=== PATIENT | male | born 1955 | race Caucasian/White ===

== ENCOUNTER 2021-01-02 11:12 | Inpatient (IN) ==
[2021-01-02] MEDS: Insulin LISPRO 300 UNITS/3 ML VIAL SUBQ SCH ×2 (17:14→22:23)
[2021-01-02] MEDS: *HR* Heparin 5,000 UNIT/ML VIAL SQ SCH ×2 (17:16→22:23)
[2021-01-02] MEDS: ceFAZolin 1,000 MG in 0.9 % Sodium Chloride Mini Bag 100 ML IVPB SCH (17:18)
[2021-01-02] MEDS: Insulin DETEMIR 100 UNIT/ML X5UNITS SUBQ SCH (22:25)
[2021-01-03] MEDS: ceFAZolin 1,000 MG in 0.9 % Sodium Chloride Mini Bag 100 ML IVPB SCH ×2 (02:31→09:53)
[2021-01-03] MEDS: *HR* Heparin 5,000 UNIT/ML VIAL SQ SCH ×3 (05:11→21:10)
[2021-01-03] MEDS: Insulin LISPRO 300 UNITS/3 ML VIAL SUBQ SCH ×5 (07:37→21:11)
[2021-01-03 07:40] LABS: Basophils # 0.1 K/mcL (0.0-0.2); Eosinophils # 0.3 K/mcL (0.0-0.6); Eosinophils % 2.5 %; Hemoglobin 10.6 g/dL (12.9-16.9); Immature Granulocytes % 0.6 % (0-4); Lymphocytes # 1.5 K/mcL (0.6-4.6); Lymphocytes % 14.5 %; Mean Corpuscular HGB Conc 32.1 g/dL (31.6-35.5); Mean Corpuscular Hemoglobin 28.3 pg (28.0-33.3); Mean Corpuscular Volume 88.2 fL (83.0-100.0); Mean Platelet Volume 10.2 fL (9.4-12.4); Monocytes # 0.9 K/mcL (0.0-1.3); Monocytes % 9.1 %; Neutrophils # 7.5 K/mcL (1.6-8.9); Platelet Count 300 K/mcL (140-400); Red Blood Count 3.74 M/mcL (4.19-5.50); Red Cell Distribution Width 14.8 % (11.5-14.5); Segmented Neutrophils % 72.3 %; White Blood Count 10.3 K/mcL (4.3-11.1)
[2021-01-03 07:48] LABS: Calcium 8.7 mg/dL (8.6-10.3); Potassium 4.4 mEq/L (3.5-5.1)
[2021-01-03] MEDS: Metoprolol XL (24 HR) Succ 25 MG TAB.ER.24H PO SCH (07:56)
[2021-01-03] MEDS ORDERED: Furosemide 40 MG TABLET PO SCH (09:00)
[2021-01-03] MEDS: ceFAZolin 2,000 MG in 0.9 % Sodium Chloride 100 ML IVPB SCH (17:01)
[2021-01-03] MEDS: Insulin DETEMIR 100 UNIT/ML X5UNITS SUBQ SCH (21:11)
[2021-01-04] MEDS: ceFAZolin 2,000 MG in 0.9 % Sodium Chloride 100 ML IVPB SCH ×4 (00:15→23:55)
[2021-01-04] MEDS: *HR* Heparin 5,000 UNIT/ML VIAL SQ SCH ×3 (06:00→20:39)
[2021-01-04] MEDS: Insulin LISPRO 300 UNITS/3 ML VIAL SUBQ SCH ×7 (08:00→21:05)
[2021-01-04] MEDS: Metoprolol XL (24 HR) Succ 25 MG TAB.ER.24H PO SCH (08:03)
[2021-01-04] MEDS: Insulin DETEMIR 100 UNIT/ML X5UNITS SUBQ SCH (20:39)
[2021-01-05] MEDS: *HR* Heparin 5,000 UNIT/ML VIAL SQ SCH ×3 (06:47→21:27)
[2021-01-05 07:03] LABS: Basophils # 0.1 K/mcL (0.0-0.2); Basophils % 1.1 %; Eosinophils # 0.3 K/mcL (0.0-0.6); Eosinophils % 2.7 %; Hematocrit 34.8 % (37.5-50.1); Hemoglobin 10.9 g/dL (12.9-16.9); Immature Granulocytes % 0.3 % (0-4); Lymphocytes # 1.4 K/mcL (0.6-4.6); Lymphocytes % 14.5 %; Mean Corpuscular HGB Conc 31.3 g/dL (31.6-35.5); Mean Corpuscular Volume 89.5 fL (83.0-100.0); Mean Platelet Volume 10.7 fL (9.4-12.4); Monocytes % 10.9 %; Neutrophils # 6.6 K/mcL (1.6-8.9); Platelet Count 312 K/mcL (140-400); Red Blood Count 3.89 M/mcL (4.19-5.50); Segmented Neutrophils % 70.5 %; White Blood Count 9.3 K/mcL (4.3-11.1)
[2021-01-05 07:19] LABS: Calcium 8.6 mg/dL (8.6-10.3); Potassium 3.8 mEq/L (3.5-5.1)
[2021-01-05] MEDS: Insulin LISPRO 300 UNITS/3 ML VIAL SUBQ SCH ×6 (07:41→16:45)
[2021-01-05] MEDS: Metoprolol XL (24 HR) Succ 25 MG TAB.ER.24H PO SCH (07:41)
[2021-01-05] MEDS: ceFAZolin 2,000 MG in 0.9 % Sodium Chloride 100 ML IVPB SCH ×2 (09:00→16:43)
[2021-01-05] MEDS: Insulin DETEMIR 100 UNIT/ML X5UNITS SUBQ SCH (21:27)
[2021-01-06] MEDS: ceFAZolin 2,000 MG in 0.9 % Sodium Chloride 100 ML IVPB SCH ×4 (00:54→22:21)
[2021-01-06] MEDS: *HR* Heparin 5,000 UNIT/ML VIAL SQ SCH ×3 (06:01→22:20)
[2021-01-06] MEDS: Insulin LISPRO 300 UNITS/3 ML VIAL SUBQ SCH ×6 (09:23→17:32)
[2021-01-06] MEDS: Metoprolol XL (24 HR) Succ 25 MG TAB.ER.24H PO SCH (09:24)
[2021-01-06] MEDS: Lactobacillus 1 EACH CAP.SPRINK PO SCH (22:21)
[2021-01-06] MEDS: Insulin DETEMIR 100 UNIT/ML X5UNITS SUBQ SCH (22:21)
[2021-01-07] MEDS: *HR* Heparin 5,000 UNIT/ML VIAL SQ SCH ×3 (06:09→20:56)
[2021-01-07] MEDS: Metoprolol XL (24 HR) Succ 25 MG TAB.ER.24H PO SCH (08:59)
[2021-01-07] MEDS: Insulin LISPRO 300 UNITS/3 ML VIAL SUBQ SCH ×6 (08:59→16:07)
[2021-01-07] MEDS: Lactobacillus 1 EACH CAP.SPRINK PO SCH ×2 (08:59→20:56)
[2021-01-07] MEDS: ceFAZolin 2,000 MG in 0.9 % Sodium Chloride 100 ML IVPB SCH ×2 (09:04→16:03)
[2021-01-07] MEDS: Insulin DETEMIR 100 UNIT/ML X5UNITS SUBQ SCH (20:56)
[2021-01-08] MEDS: ceFAZolin 2,000 MG in 0.9 % Sodium Chloride 100 ML IVPB SCH ×3 (00:42→16:08)
[2021-01-08] MEDS: *HR* Heparin 5,000 UNIT/ML VIAL SQ SCH ×3 (05:48→22:38)
[2021-01-08] MEDS: Insulin LISPRO 300 UNITS/3 ML VIAL SUBQ SCH ×6 (08:30→16:14)
[2021-01-08] MEDS: Lactobacillus 1 EACH CAP.SPRINK PO SCH ×2 (08:31→22:38)
[2021-01-08] MEDS: Metoprolol XL (24 HR) Succ 25 MG TAB.ER.24H PO SCH (08:31)
[2021-01-08] MEDS: Insulin DETEMIR 100 UNIT/ML X5UNITS SUBQ SCH (22:38)
[2021-01-09] MEDS: ceFAZolin 2,000 MG in 0.9 % Sodium Chloride 100 ML IVPB SCH ×4 (00:14→16:21)
[2021-01-09] MEDS: *HR* Heparin 5,000 UNIT/ML VIAL SQ SCH ×3 (07:06→21:50)
[2021-01-09] MEDS: Insulin LISPRO 300 UNITS/3 ML VIAL SUBQ SCH ×6 (08:10→16:20)
[2021-01-09] MEDS: Metoprolol XL (24 HR) Succ 25 MG TAB.ER.24H PO SCH (08:33)
[2021-01-09] MEDS: Lactobacillus 1 EACH CAP.SPRINK PO SCH ×2 (08:33→21:49)
[2021-01-09] MEDS: Insulin DETEMIR 100 UNIT/ML X5UNITS SUBQ SCH (21:50)
[2021-01-10] MEDS: ceFAZolin 2,000 MG in 0.9 % Sodium Chloride 100 ML IVPB SCH ×4 (00:29→23:57)
[2021-01-10] MEDS: *HR* Heparin 5,000 UNIT/ML VIAL SQ SCH ×3 (05:55→20:49)
[2021-01-10] MEDS: Insulin LISPRO 300 UNITS/3 ML VIAL SUBQ SCH ×6 (07:38→17:05)
[2021-01-10] MEDS: Metoprolol XL (24 HR) Succ 25 MG TAB.ER.24H PO SCH (08:02)
[2021-01-10] MEDS: Lactobacillus 1 EACH CAP.SPRINK PO SCH ×2 (08:02→20:49)
[2021-01-10] MEDS: Insulin DETEMIR 100 UNIT/ML X5UNITS SUBQ SCH (20:49)
[2021-01-11] MEDS: *HR* Heparin 5,000 UNIT/ML VIAL SQ SCH ×3 (05:43→21:24)
[2021-01-11] MEDS: Insulin LISPRO 300 UNITS/3 ML VIAL SUBQ SCH ×6 (07:37→16:35)
[2021-01-11] MEDS: Metoprolol XL (24 HR) Succ 25 MG TAB.ER.24H PO SCH (09:14)
[2021-01-11] MEDS: Lactobacillus 1 EACH CAP.SPRINK PO SCH ×2 (09:14→21:23)
[2021-01-11] MEDS: ceFAZolin 2,000 MG in 0.9 % Sodium Chloride 100 ML IVPB SCH ×2 (09:29→16:29)
[2021-01-11] MEDS: Insulin DETEMIR 100 UNIT/ML X5UNITS SUBQ SCH (21:24)
[2021-01-12] MEDS: ceFAZolin 2,000 MG in 0.9 % Sodium Chloride 100 ML IVPB SCH ×3 (00:14→15:54)
[2021-01-12] MEDS: *HR* Heparin 5,000 UNIT/ML VIAL SQ SCH ×3 (06:16→20:53)
[2021-01-12] MEDS: Insulin LISPRO 300 UNITS/3 ML VIAL SUBQ SCH ×6 (08:27→17:33)
[2021-01-12] MEDS: Metoprolol XL (24 HR) Succ 25 MG TAB.ER.24H PO SCH (08:28)
[2021-01-12] MEDS: Lactobacillus 1 EACH CAP.SPRINK PO SCH ×2 (08:28→20:53)
[2021-01-12] MEDS: Insulin DETEMIR 100 UNIT/ML X5UNITS SUBQ SCH (20:55)
[2021-01-13] MEDS: ceFAZolin 2,000 MG in 0.9 % Sodium Chloride 100 ML IVPB SCH ×4 (01:38→23:20)
[2021-01-13] MEDS: *HR* Heparin 5,000 UNIT/ML VIAL SQ SCH ×3 (06:05→20:21)
[2021-01-13 07:09] LABS: Basophils # 0.1 K/mcL (0.0-0.2); Basophils % 1.2 %; Eosinophils # 0.4 K/mcL (0.0-0.6); Eosinophils % 6.1 %; Hematocrit 36.4 % (37.5-50.1); Hemoglobin 11.5 g/dL (12.9-16.9); Immature Granulocytes % 0.2 % (0-4); Lymphocytes # 1.2 K/mcL (0.6-4.6); Lymphocytes % 20.1 %; Mean Corpuscular HGB Conc 31.6 g/dL (31.6-35.5); Mean Corpuscular Hemoglobin 28.2 pg (28.0-33.3); Mean Corpuscular Volume 89.2 fL (83.0-100.0); Monocytes # 0.7 K/mcL (0.0-1.3); Monocytes % 12.8 %; Neutrophils # 3.4 K/mcL (1.6-8.9); Platelet Count 294 K/mcL (140-400); Red Blood Count 4.08 M/mcL (4.19-5.50); Red Cell Distribution Width 15.3 % (11.5-14.5); Segmented Neutrophils % 59.6 %; White Blood Count 5.8 K/mcL (4.3-11.1)
[2021-01-13 07:36] LABS: Calcium 9.1 mg/dL (8.6-10.3); Potassium 4.9 mEq/L (3.5-5.1)
[2021-01-13] MEDS: Metoprolol XL (24 HR) Succ 25 MG TAB.ER.24H PO SCH (08:25)
[2021-01-13] MEDS: Insulin LISPRO 300 UNITS/3 ML VIAL SUBQ SCH ×7 (08:25→20:22)
[2021-01-13] MEDS: Lactobacillus 1 EACH CAP.SPRINK PO SCH ×2 (08:25→20:22)
[2021-01-13] MEDS: Insulin DETEMIR 100 UNIT/ML X5UNITS SUBQ SCH (20:21)
[2021-01-14] MEDS: *HR* Heparin 5,000 UNIT/ML VIAL SQ SCH ×3 (06:21→20:13)
[2021-01-14] MEDS: Metoprolol XL (24 HR) Succ 25 MG TAB.ER.24H PO SCH (08:39)
[2021-01-14] MEDS: Lactobacillus 1 EACH CAP.SPRINK PO SCH ×2 (08:39→20:13)
[2021-01-14] MEDS: ceFAZolin 2,000 MG in 0.9 % Sodium Chloride 100 ML IVPB SCH ×3 (08:50→23:20)
[2021-01-14] MEDS: Insulin LISPRO 300 UNITS/3 ML VIAL SUBQ SCH ×7 (08:50→20:14)
[2021-01-14] MEDS: Insulin DETEMIR 100 UNIT/ML X5UNITS SUBQ SCH (20:13)
[2021-01-15] MEDS: *HR* Heparin 5,000 UNIT/ML VIAL SQ SCH ×3 (05:39→20:16)
[2021-01-15] MEDS: Lactobacillus 1 EACH CAP.SPRINK PO SCH ×2 (08:28→20:14)
[2021-01-15] MEDS: Insulin LISPRO 300 UNITS/3 ML VIAL SUBQ SCH ×7 (08:29→20:15)
[2021-01-15] MEDS: ceFAZolin 2,000 MG in 0.9 % Sodium Chloride 100 ML IVPB SCH ×3 (08:30→23:24)
[2021-01-15] MEDS: Metoprolol XL (24 HR) Succ 25 MG TAB.ER.24H PO SCH (08:31)
[2021-01-15] MEDS: Insulin DETEMIR 100 UNIT/ML X5UNITS SUBQ SCH (20:15)
[2021-01-16] MEDS: *HR* Heparin 5,000 UNIT/ML VIAL SQ SCH ×3 (05:29→20:46)
[2021-01-16] MEDS: Insulin LISPRO 300 UNITS/3 ML VIAL SUBQ SCH ×7 (08:53→20:48)
[2021-01-16] MEDS: Metoprolol XL (24 HR) Succ 25 MG TAB.ER.24H PO SCH (08:58)
[2021-01-16] MEDS: Lactobacillus 1 EACH CAP.SPRINK PO SCH ×2 (08:58→20:47)
[2021-01-16] MEDS: ceFAZolin 2,000 MG in 0.9 % Sodium Chloride 100 ML IVPB SCH ×2 (09:10→18:18)
[2021-01-16] MEDS: Insulin DETEMIR 100 UNIT/ML X5UNITS SUBQ SCH (20:53)
[2021-01-17] MEDS: ceFAZolin 2,000 MG in 0.9 % Sodium Chloride 100 ML IVPB SCH ×3 (01:33→16:57)
[2021-01-17] MEDS: *HR* Heparin 5,000 UNIT/ML VIAL SQ SCH ×3 (06:35→22:27)
[2021-01-17] MEDS: Insulin LISPRO 300 UNITS/3 ML VIAL SUBQ SCH ×7 (08:52→21:00)
[2021-01-17] MEDS: Lactobacillus 1 EACH CAP.SPRINK PO SCH ×2 (08:53→21:00)
[2021-01-17] MEDS: Metoprolol XL (24 HR) Succ 25 MG TAB.ER.24H PO SCH (08:53)
[2021-01-17] MEDS: Insulin DETEMIR 100 UNIT/ML X5UNITS SUBQ SCH (21:00)
[2021-01-18] MEDS ORDERED: ceFAZolin 2,000 MG in 0.9 % Sodium Chloride 100 ML IVPB SCH ×2 (02:00→07:00)
[2021-01-18] MEDS: *HR* Heparin 5,000 UNIT/ML VIAL SQ SCH ×3 (06:58→21:52)
[2021-01-18] MEDS: Metoprolol XL (24 HR) Succ 25 MG TAB.ER.24H PO SCH (08:32)
[2021-01-18] MEDS: Lactobacillus 1 EACH CAP.SPRINK PO SCH ×2 (08:32→21:51)
[2021-01-18] MEDS: ceFAZolin 2,000 MG in 0.9 % Sodium Chloride 100 ML IVPB SCH ×3 (08:32→23:51)
[2021-01-18] MEDS: Insulin LISPRO 300 UNITS/3 ML VIAL SUBQ SCH ×7 (08:33→21:52)
[2021-01-18] MEDS: Insulin DETEMIR 100 UNIT/ML X5UNITS SUBQ SCH (21:51)
[2021-01-19] MEDS: *HR* Heparin 5,000 UNIT/ML VIAL SQ SCH ×2 (06:09→14:45)
[2021-01-19] MEDS: ceFAZolin 2,000 MG in 0.9 % Sodium Chloride 100 ML IVPB SCH ×3 (08:14→23:32)
[2021-01-19] MEDS: Insulin LISPRO 300 UNITS/3 ML VIAL SUBQ SCH ×7 (08:15→21:09)
[2021-01-19] MEDS: Lactobacillus 1 EACH CAP.SPRINK PO SCH ×2 (08:15→20:14)
[2021-01-19] MEDS: Metoprolol XL (24 HR) Succ 25 MG TAB.ER.24H PO SCH (08:45)
[2021-01-19 10:03] LABS: Basophils # 0.1 K/mcL (0.0-0.2); Basophils % 1.6 %; Eosinophils # 0.4 K/mcL (0.0-0.6); Eosinophils % 5.3 %; Hematocrit 41.5 % (37.5-50.1); Hemoglobin 13.1 g/dL (12.9-16.9); Immature Granulocytes % 0.3 % (0-4); Lymphocytes # 1.1 K/mcL (0.6-4.6); Lymphocytes % 16.1 %; Mean Corpuscular HGB Conc 31.6 g/dL (31.6-35.5); Mean Corpuscular Hemoglobin 28.3 pg (28.0-33.3); Mean Corpuscular Volume 89.6 fL (83.0-100.0); Mean Platelet Volume 11.1 fL (9.4-12.4); Monocytes # 0.5 K/mcL (0.0-1.3); Monocytes % 7.7 %; Neutrophils # 4.7 K/mcL (1.6-8.9); Platelet Count 334 K/mcL (140-400); Red Blood Count 4.63 M/mcL (4.19-5.50); Red Cell Distribution Width 15.7 % (11.5-14.5); White Blood Count 6.8 K/mcL (4.3-11.1)
[2021-01-19 10:18] LABS: Albumin 3.6 g/dL (3.5-5.7); Albumin/Globulin Ratio 1.1 (1.1-2.2); Bilirubin,Total 0.3 mg/dL (0.3-1.0); Calcium 9.6 mg/dL (8.6-10.3); Globulin 3.2 g/dL (2.4-3.5); Potassium 4.5 mEq/L (3.5-5.1); Total Protein 6.8 g/dL (6.4-8.9)
[2021-01-19] MEDS ORDERED: Perflutren Lipid Microsphere 1.3 ML in 0.9 % Sodium Chloride 8.7 ML IVP PRN (13:53)
[2021-01-19] MEDS ORDERED: *HR* Heparin 5,000 UNIT/ML VIAL IVP ONE (17:40)
[2021-01-19] MEDS ORDERED: *HR* Heparin 5,000 UNIT/ML VIAL IVP PRN ×2 (17:40)
[2021-01-19] MEDS ORDERED: Warfarin perPT PO PRN (18:00)
[2021-01-19] MEDS ORDERED: *HR* Warfarin 5 MG TABLET PO ONE (18:00)
[2021-01-19 19:02] LABS: Hematocrit 38.1 % (37.5-50.1); Hemoglobin 12.2 g/dL (12.9-16.9); Mean Corpuscular Hemoglobin 28.6 pg (28.0-33.3); Mean Corpuscular Volume 89.4 fL (83.0-100.0); Mean Platelet Volume 11.3 fL (9.4-12.4); Platelet Count 316 K/mcL (140-400); Red Blood Count 4.26 M/mcL (4.19-5.50); Red Cell Distribution Width 15.5 % (11.5-14.5); White Blood Count 6.7 K/mcL (4.3-11.1)
[2021-01-19 19:12] LABS: INR 1.1; Prothrombin Time 12.7 Seconds (9.4-12.1)
[2021-01-19 19:18] LABS: Heparin anti-factor XA UFH < 0.04 IU/mL (0.30-0.70)
[2021-01-19] MEDS: Heparin 25,000UNIT/250ML 1/2NS 25,000 UNIT/250 ML IV.SOLN IVC SCH (19:42)
[2021-01-19] MEDS: Insulin DETEMIR 100 UNIT/ML X5UNITS SUBQ SCH (21:07)
[2021-01-20 03:20] LABS: Prothrombin Time 14.8 Seconds (9.4-12.1)
[2021-01-20 03:21] LABS: INR 1.3
[2021-01-20] MEDS: Insulin LISPRO 300 UNITS/3 ML VIAL SUBQ SCH ×7 (08:37→20:08)
[2021-01-20] MEDS: Lactobacillus 1 EACH CAP.SPRINK PO SCH ×2 (08:38→20:06)
[2021-01-20] MEDS: Metoprolol XL (24 HR) Succ 25 MG TAB.ER.24H PO SCH (08:38)
[2021-01-20] MEDS: ceFAZolin 2,000 MG in 0.9 % Sodium Chloride 100 ML IVPB SCH ×3 (08:52→23:01)
[2021-01-20] MEDS: Aspirin 81 MG TAB.CHEW PO SCH (11:46)
[2021-01-20] MEDS ORDERED: *HR* Warfarin 5 MG TABLET PO ONE (18:00)
[2021-01-20] MEDS: Heparin 25,000UNIT/250ML 1/2NS 25,000 UNIT/250 ML IV.SOLN IVC SCH (18:16)
[2021-01-20] MEDS: Insulin DETEMIR 100 UNIT/ML X5UNITS SUBQ SCH (20:06)
[2021-01-21 08:39] LABS: Basophils # 0.1 K/mcL (0.0-0.2); Basophils % 1.5 %; Eosinophils # 0.3 K/mcL (0.0-0.6); Eosinophils % 5.5 %; Hematocrit 37.7 % (37.5-50.1); Hemoglobin 12.1 g/dL (12.9-16.9); Immature Granulocytes % 0.4 % (0-4); Lymphocytes % 18.3 %; Mean Corpuscular HGB Conc 32.1 g/dL (31.6-35.5); Mean Corpuscular Hemoglobin 28.4 pg (28.0-33.3); Mean Corpuscular Volume 88.5 fL (83.0-100.0); Mean Platelet Volume 11.6 fL (9.4-12.4); Monocytes # 0.7 K/mcL (0.0-1.3); Monocytes % 12.4 %; Neutrophils # 3.4 K/mcL (1.6-8.9); Platelet Count 280 K/mcL (140-400); Red Blood Count 4.26 M/mcL (4.19-5.50); Red Cell Distribution Width 15.3 % (11.5-14.5); Segmented Neutrophils % 61.9 %; White Blood Count 5.4 K/mcL (4.3-11.1)
[2021-01-21 08:43] LABS: INR 1.7
[2021-01-21] MEDS: Lactobacillus 1 EACH CAP.SPRINK PO SCH ×2 (09:15→22:08)
[2021-01-21] MEDS: Aspirin 81 MG TAB.CHEW PO SCH (09:15)
[2021-01-21] MEDS: Metoprolol XL (24 HR) Succ 25 MG TAB.ER.24H PO SCH (09:15)
[2021-01-21] MEDS: Insulin LISPRO 300 UNITS/3 ML VIAL SUBQ SCH ×7 (09:15→22:07)
[2021-01-21] MEDS: ceFAZolin 2,000 MG in 0.9 % Sodium Chloride 100 ML IVPB SCH ×2 (09:16→17:55)
[2021-01-21] MEDS ORDERED: *HR* Warfarin 5 MG TABLET PO ONE (18:00)
[2021-01-21] MEDS: Insulin DETEMIR 100 UNIT/ML X5UNITS SUBQ SCH (22:06)
[2021-01-22] MEDS: ceFAZolin 2,000 MG in 0.9 % Sodium Chloride 100 ML IVPB SCH ×3 (00:01→16:45)
[2021-01-22] MEDS: Heparin 25,000UNIT/250ML 1/2NS 25,000 UNIT/250 ML IV.SOLN IVC SCH ×2 (02:00→02:06)
[2021-01-22] MEDS: Insulin LISPRO 300 UNITS/3 ML VIAL SUBQ SCH ×7 (07:16→21:37)
[2021-01-22 07:26] LABS: Basophils # 0.1 K/mcL (0.0-0.2); Basophils % 1.5 %; Eosinophils # 0.3 K/mcL (0.0-0.6); Eosinophils % 5.1 %; Hematocrit 39.2 % (37.5-50.1); Hemoglobin 12.5 g/dL (12.9-16.9); Immature Granulocytes % 0.3 % (0-4); Lymphocytes # 1.2 K/mcL (0.6-4.6); Lymphocytes % 19.8 %; Mean Corpuscular HGB Conc 31.9 g/dL (31.6-35.5); Mean Corpuscular Hemoglobin 28.3 pg (28.0-33.3); Mean Corpuscular Volume 88.9 fL (83.0-100.0); Mean Platelet Volume 11.5 fL (9.4-12.4); Monocytes # 0.7 K/mcL (0.0-1.3); Monocytes % 11.4 %; Neutrophils # 3.6 K/mcL (1.6-8.9); Platelet Count 280 K/mcL (140-400); Red Blood Count 4.41 M/mcL (4.19-5.50); Red Cell Distribution Width 15.5 % (11.5-14.5); Segmented Neutrophils % 61.9 %; White Blood Count 5.9 K/mcL (4.3-11.1)
[2021-01-22 07:48] LABS: INR 1.8; Prothrombin Time 20.5 Seconds (9.4-12.1)
[2021-01-22] MEDS: Lactobacillus 1 EACH CAP.SPRINK PO SCH ×2 (09:49→21:37)
[2021-01-22] MEDS: Metoprolol XL (24 HR) Succ 25 MG TAB.ER.24H PO SCH (09:49)
[2021-01-22] MEDS: Aspirin 81 MG TAB.CHEW PO SCH (09:49)
[2021-01-22] MEDS ORDERED: *HR* Warfarin 5 MG TABLET PO ONE (18:00)
[2021-01-22] MEDS: Insulin DETEMIR 100 UNIT/ML X5UNITS SUBQ SCH (21:37)
[2021-01-23] MEDS: ceFAZolin 2,000 MG in 0.9 % Sodium Chloride 100 ML IVPB SCH ×5 (00:43→23:32)
[2021-01-23] MEDS: Heparin 25,000UNIT/250ML 1/2NS 25,000 UNIT/250 ML IV.SOLN IVC SCH (02:04)
[2021-01-23 07:28] LABS: Basophils # 0.1 K/mcL (0.0-0.2); Basophils % 1.2 %; Eosinophils # 0.3 K/mcL (0.0-0.6); Eosinophils % 3.8 %; Hematocrit 37.8 % (37.5-50.1); Hemoglobin 11.9 g/dL (12.9-16.9); Immature Granulocytes % 0.3 % (0-4); Lymphocytes # 1.5 K/mcL (0.6-4.6); Lymphocytes % 22.2 %; Mean Corpuscular HGB Conc 31.5 g/dL (31.6-35.5); Mean Corpuscular Hemoglobin 27.9 pg (28.0-33.3); Mean Corpuscular Volume 88.5 fL (83.0-100.0); Monocytes # 0.7 K/mcL (0.0-1.3); Platelet Count 265 K/mcL (140-400); Red Blood Count 4.27 M/mcL (4.19-5.50); Red Cell Distribution Width 15.5 % (11.5-14.5); Segmented Neutrophils % 61.5 %; White Blood Count 6.6 K/mcL (4.3-11.1)
[2021-01-23 07:35] LABS: INR 2.1; Prothrombin Time 23.6 Seconds (9.4-12.1)
[2021-01-23] MEDS: Metoprolol XL (24 HR) Succ 25 MG TAB.ER.24H PO SCH (07:38)
[2021-01-23] MEDS: Aspirin 81 MG TAB.CHEW PO SCH (07:38)
[2021-01-23] MEDS: Lactobacillus 1 EACH CAP.SPRINK PO SCH ×2 (07:38→20:40)
[2021-01-23] MEDS: Insulin LISPRO 300 UNITS/3 ML VIAL SUBQ SCH ×7 (07:39→20:41)
[2021-01-23] MEDS ORDERED: *HR* Warfarin 5 MG TABLET PO ONE (18:00)
[2021-01-23] MEDS: Insulin DETEMIR 100 UNIT/ML X5UNITS SUBQ SCH (20:40)
[2021-01-24] MEDS: ceFAZolin 2,000 MG in 0.9 % Sodium Chloride 100 ML IVPB SCH ×3 (06:16→23:10)
[2021-01-24 07:03] LABS: Basophils # 0.1 K/mcL (0.0-0.2); Basophils % 1.6 %; Eosinophils # 0.3 K/mcL (0.0-0.6); Eosinophils % 4.5 %; Hematocrit 37.5 % (37.5-50.1); Hemoglobin 11.8 g/dL (12.9-16.9); Immature Granulocytes % 0.2 % (0-4); Lymphocytes % 17.8 %; Mean Corpuscular HGB Conc 31.5 g/dL (31.6-35.5); Mean Corpuscular Hemoglobin 27.9 pg (28.0-33.3); Mean Corpuscular Volume 88.7 fL (83.0-100.0); Mean Platelet Volume 11.1 fL (9.4-12.4); Monocytes # 0.7 K/mcL (0.0-1.3); Monocytes % 11.9 %; Neutrophils # 3.7 K/mcL (1.6-8.9); Platelet Count 250 K/mcL (140-400); Red Blood Count 4.23 M/mcL (4.19-5.50); Red Cell Distribution Width 15.4 % (11.5-14.5); White Blood Count 5.8 K/mcL (4.3-11.1)
[2021-01-24 07:23] LABS: Prothrombin Time 23.1 Seconds (9.4-12.1)
[2021-01-24] MEDS: Insulin LISPRO 300 UNITS/3 ML VIAL SUBQ SCH ×7 (08:22→20:48)
[2021-01-24] MEDS: Aspirin 81 MG TAB.CHEW PO SCH (08:23)
[2021-01-24] MEDS: Lactobacillus 1 EACH CAP.SPRINK PO SCH ×2 (08:23→20:48)
[2021-01-24] MEDS: Metoprolol XL (24 HR) Succ 25 MG TAB.ER.24H PO SCH (08:23)
[2021-01-24] MEDS ORDERED: *HR* Warfarin 5 MG TABLET PO ONE (18:00)
[2021-01-24] MEDS: Insulin DETEMIR 100 UNIT/ML X5UNITS SUBQ SCH (20:48)
[2021-01-24] MEDS ORDERED: Acetaminophen 325 MG TABLET PO PRN (23:37)
[2021-01-25] MEDS: ceFAZolin 2,000 MG in 0.9 % Sodium Chloride 100 ML IVPB SCH ×3 (06:10→22:30)
[2021-01-25 06:59] LABS: INR 2.1; Prothrombin Time 23.7 Seconds (9.4-12.1)
[2021-01-25] MEDS: Insulin LISPRO 300 UNITS/3 ML VIAL SUBQ SCH ×6 (07:32→17:52)
[2021-01-25] MEDS: Aspirin 81 MG TAB.CHEW PO SCH (07:33)
[2021-01-25] MEDS: Metoprolol XL (24 HR) Succ 25 MG TAB.ER.24H PO SCH (07:33)
[2021-01-25] MEDS: Lactobacillus 1 EACH CAP.SPRINK PO SCH ×2 (07:33→21:21)
[2021-01-25] MEDS ORDERED: *HR* Warfarin 5 MG TABLET PO ONE (18:00)
[2021-01-25] MEDS ORDERED: Insulin DETEMIR 100 UNIT/ML X5UNITS SUBQ SCH (21:00)
[2021-01-26] MEDS: ceFAZolin 2,000 MG in 0.9 % Sodium Chloride 100 ML IVPB SCH ×2 (06:00→17:56)
[2021-01-26 06:52] LABS: INR 2.1; Prothrombin Time 23.3 Seconds (9.4-12.1)
[2021-01-26] MEDS: Insulin LISPRO 300 UNITS/3 ML VIAL SUBQ SCH ×6 (07:59→17:57)
[2021-01-26] MEDS: Metoprolol XL (24 HR) Succ 25 MG TAB.ER.24H PO SCH (09:37)
[2021-01-26] MEDS: Aspirin 81 MG TAB.CHEW PO SCH (09:37)
[2021-01-26] MEDS: Lactobacillus 1 EACH CAP.SPRINK PO SCH ×2 (09:37→21:11)
[2021-01-26] MEDS ORDERED: *HR* Warfarin 5 MG TABLET PO ONE (18:00)
[2021-01-26] MEDS: Insulin DETEMIR 100 UNIT/ML X5UNITS SUBQ SCH (21:11)
[2021-01-27] MEDS: ceFAZolin 2,000 MG in 0.9 % Sodium Chloride 100 ML IVPB SCH ×3 (00:01→14:56)
[2021-01-27] MEDS: Insulin LISPRO 300 UNITS/3 ML VIAL SUBQ SCH ×6 (07:49→17:41)
[2021-01-27] MEDS: Aspirin 81 MG TAB.CHEW PO SCH (07:54)
[2021-01-27] MEDS: Lactobacillus 1 EACH CAP.SPRINK PO SCH ×2 (07:54→21:46)
[2021-01-27] MEDS: Metoprolol XL (24 HR) Succ 25 MG TAB.ER.24H PO SCH (07:54)
[2021-01-27 08:04] LABS: Prothrombin Time 22.5 Seconds (9.4-12.1)
[2021-01-27] MEDS ORDERED: *HR* Warfarin 5 MG TABLET PO ONE (18:00)
[2021-01-27] MEDS: Insulin DETEMIR 100 UNIT/ML X5UNITS SUBQ SCH (21:46)
[2021-01-28] MEDS: ceFAZolin 2,000 MG in 0.9 % Sodium Chloride 100 ML IVPB SCH ×4 (00:12→23:10)
[2021-01-28] MEDS: Insulin LISPRO 300 UNITS/3 ML VIAL SUBQ SCH ×6 (08:09→16:52)
[2021-01-28] MEDS: Lactobacillus 1 EACH CAP.SPRINK PO SCH ×2 (08:10→19:56)
[2021-01-28] MEDS: Metoprolol XL (24 HR) Succ 25 MG TAB.ER.24H PO SCH (08:10)
[2021-01-28] MEDS: Aspirin 81 MG TAB.CHEW PO SCH (08:10)
[2021-01-28 11:50] LABS: INR 1.9; Prothrombin Time 22.1 Seconds (9.4-12.1)
[2021-01-28] MEDS ORDERED: *HR* Warfarin 3 MG TABLET PO ONE (18:00)
[2021-01-28] MEDS: Insulin DETEMIR 100 UNIT/ML X5UNITS SUBQ SCH (19:57)
[2021-01-29] MEDS: ceFAZolin 2,000 MG in 0.9 % Sodium Chloride 100 ML IVPB SCH ×3 (06:25→23:14)
[2021-01-29] MEDS: Metoprolol XL (24 HR) Succ 25 MG TAB.ER.24H PO SCH (07:51)
[2021-01-29] MEDS: Aspirin 81 MG TAB.CHEW PO SCH (07:51)
[2021-01-29] MEDS: Lactobacillus 1 EACH CAP.SPRINK PO SCH ×2 (07:51→19:35)
[2021-01-29] MEDS: Insulin LISPRO 300 UNITS/3 ML VIAL SUBQ SCH ×6 (07:52→16:47)
[2021-01-29 08:38] LABS: INR 2.1; Prothrombin Time 23.7 Seconds (9.4-12.1)
[2021-01-29] MEDS ORDERED: *HR* Warfarin 5 MG TABLET PO ONE (18:00)
[2021-01-29] MEDS: Insulin DETEMIR 100 UNIT/ML X5UNITS SUBQ SCH (19:35)
[2021-01-30] MEDS: ceFAZolin 2,000 MG in 0.9 % Sodium Chloride 100 ML IVPB SCH ×3 (06:43→23:42)
[2021-01-30 06:59] LABS: Basophils # 0.1 K/mcL (0.0-0.2); Basophils % 1.2 %; Eosinophils # 0.2 K/mcL (0.0-0.6); Eosinophils % 3.8 %; Hematocrit 39.1 % (37.5-50.1); Hemoglobin 12.2 g/dL (12.9-16.9); Immature Granulocytes % 0.3 % (0-4); Lymphocytes % 16.9 %; Mean Corpuscular HGB Conc 31.2 g/dL (31.6-35.5); Mean Corpuscular Volume 89.9 fL (83.0-100.0); Mean Platelet Volume 11.6 fL (9.4-12.4); Monocytes # 0.7 K/mcL (0.0-1.3); Neutrophils # 3.9 K/mcL (1.6-8.9); Platelet Count 220 K/mcL (140-400); Red Blood Count 4.35 M/mcL (4.19-5.50); Red Cell Distribution Width 15.3 % (11.5-14.5); Segmented Neutrophils % 65.8 %
[2021-01-30 07:08] LABS: INR 2.1; Prothrombin Time 23.6 Seconds (9.4-12.1)
[2021-01-30 07:14] LABS: Potassium 4.2 mEq/L (3.5-5.1)
[2021-01-30 09:00] LABS: Calcium 8.6 mg/dL (8.6-10.3)
[2021-01-30] MEDS: Lactobacillus 1 EACH CAP.SPRINK PO SCH ×2 (09:44→21:12)
[2021-01-30] MEDS: Insulin LISPRO 300 UNITS/3 ML VIAL SUBQ SCH ×6 (09:44→17:07)
[2021-01-30] MEDS: Aspirin 81 MG TAB.CHEW PO SCH (09:44)
[2021-01-30] MEDS: Metoprolol XL (24 HR) Succ 25 MG TAB.ER.24H PO SCH (09:45)
[2021-01-30] MEDS ORDERED: *HR* Warfarin 5 MG TABLET PO ONE (18:00)
[2021-01-30] MEDS: Insulin DETEMIR 100 UNIT/ML X5UNITS SUBQ SCH (21:13)
[2021-01-31] MEDS: ceFAZolin 2,000 MG in 0.9 % Sodium Chloride 100 ML IVPB SCH ×3 (06:29→23:29)
[2021-01-31 07:26] LABS: INR 2.1; Prothrombin Time 24.1 Seconds (9.4-12.1)
[2021-01-31] MEDS: Insulin LISPRO 300 UNITS/3 ML VIAL SUBQ SCH ×6 (08:38→16:46)
[2021-01-31] MEDS: Lactobacillus 1 EACH CAP.SPRINK PO SCH ×2 (08:38→21:02)
[2021-01-31] MEDS: Metoprolol XL (24 HR) Succ 25 MG TAB.ER.24H PO SCH (08:38)
[2021-01-31] MEDS: Aspirin 81 MG TAB.CHEW PO SCH (08:38)
[2021-01-31] MEDS ORDERED: *HR* Warfarin 5 MG TABLET PO ONE (18:00)
[2021-01-31] MEDS: Insulin DETEMIR 100 UNIT/ML X5UNITS SUBQ SCH (21:02)
[2021-02-01] MEDS: ceFAZolin 2,000 MG in 0.9 % Sodium Chloride 100 ML IVPB SCH ×3 (06:16→22:43)
[2021-02-01 07:05] LABS: INR 2.2; Prothrombin Time 24.4 Seconds (9.4-12.1)
[2021-02-01] MEDS: Insulin LISPRO 300 UNITS/3 ML VIAL SUBQ SCH ×6 (10:26→17:28)
[2021-02-01] MEDS: Lactobacillus 1 EACH CAP.SPRINK PO SCH ×2 (10:27→22:42)
[2021-02-01] MEDS: Metoprolol XL (24 HR) Succ 25 MG TAB.ER.24H PO SCH (10:27)
[2021-02-01] MEDS: Aspirin 81 MG TAB.CHEW PO SCH (10:27)
[2021-02-01] MEDS ORDERED: *HR* Warfarin 5 MG TABLET PO ONE (18:00)
[2021-02-01] MEDS: Insulin DETEMIR 100 UNIT/ML X5UNITS SUBQ SCH (22:44)
[2021-02-02] MEDS: ceFAZolin 2,000 MG in 0.9 % Sodium Chloride 100 ML IVPB SCH ×3 (06:27→22:28)
[2021-02-02] MEDS: Insulin LISPRO 300 UNITS/3 ML VIAL SUBQ SCH ×6 (07:57→16:42)
[2021-02-02] MEDS: Metoprolol XL (24 HR) Succ 25 MG TAB.ER.24H PO SCH (08:02)
[2021-02-02] MEDS: Aspirin 81 MG TAB.CHEW PO SCH (08:02)
[2021-02-02] MEDS: Lactobacillus 1 EACH CAP.SPRINK PO SCH ×2 (08:02→21:31)
[2021-02-02 08:10] LABS: INR 2.1; Prothrombin Time 23.7 Seconds (9.4-12.1)
[2021-02-02] MEDS ORDERED: *HR* Warfarin 5 MG TABLET PO ONE (18:00)
[2021-02-02] MEDS: Insulin DETEMIR 100 UNIT/ML X5UNITS SUBQ SCH (21:31)
[2021-02-03] MEDS: ceFAZolin 2,000 MG in 0.9 % Sodium Chloride 100 ML IVPB SCH ×3 (06:16→22:03)
[2021-02-03 07:51] LABS: INR 2.1; Prothrombin Time 23.3 Seconds (9.4-12.1)
[2021-02-03] MEDS: Aspirin 81 MG TAB.CHEW PO SCH (08:32)
[2021-02-03] MEDS: Insulin LISPRO 300 UNITS/3 ML VIAL SUBQ SCH ×6 (08:32→17:06)
[2021-02-03] MEDS: Lactobacillus 1 EACH CAP.SPRINK PO SCH ×2 (08:32→22:03)
[2021-02-03] MEDS: Metoprolol XL (24 HR) Succ 25 MG TAB.ER.24H PO SCH (08:32)
[2021-02-03] MEDS ORDERED: *HR* Warfarin 5 MG TABLET PO ONE (18:00)
[2021-02-03] MEDS: Insulin DETEMIR 100 UNIT/ML X5UNITS SUBQ SCH (22:03)
[2021-02-04] MEDS: ceFAZolin 2,000 MG in 0.9 % Sodium Chloride 100 ML IVPB SCH ×3 (06:38→21:29)
[2021-02-04] MEDS: Insulin LISPRO 300 UNITS/3 ML VIAL SUBQ SCH ×6 (08:20→17:11)
[2021-02-04] MEDS: Lactobacillus 1 EACH CAP.SPRINK PO SCH ×2 (08:25→21:28)
[2021-02-04] MEDS: Aspirin 81 MG TAB.CHEW PO SCH (08:25)
[2021-02-04] MEDS: Metoprolol XL (24 HR) Succ 25 MG TAB.ER.24H PO SCH (08:26)
[2021-02-04 08:43] LABS: INR 1.8; Prothrombin Time 20.4 Seconds (9.4-12.1)
[2021-02-04] MEDS ORDERED: *HR* Warfarin 5 MG TABLET PO ONE (18:00)
[2021-02-04] MEDS: Insulin DETEMIR 100 UNIT/ML X5UNITS SUBQ SCH (21:29)
[2021-02-05] MEDS: ceFAZolin 2,000 MG in 0.9 % Sodium Chloride 100 ML IVPB SCH ×3 (06:30→22:12)
[2021-02-05 07:48] LABS: INR 1.8; Prothrombin Time 20.7 Seconds (9.4-12.1)
[2021-02-05] MEDS: Insulin LISPRO 300 UNITS/3 ML VIAL SUBQ SCH ×6 (07:56→16:30)
[2021-02-05] MEDS: Aspirin 81 MG TAB.CHEW PO SCH (09:28)
[2021-02-05] MEDS: Metoprolol XL (24 HR) Succ 25 MG TAB.ER.24H PO SCH (09:28)
[2021-02-05] MEDS: Lactobacillus 1 EACH CAP.SPRINK PO SCH ×2 (09:28→22:12)
[2021-02-05] MEDS ORDERED: *HR* Warfarin 3 MG TABLET PO ONE (18:00)
[2021-02-05] MEDS: Insulin DETEMIR 100 UNIT/ML X5UNITS SUBQ SCH (22:12)
[2021-02-06] MEDS: ceFAZolin 2,000 MG in 0.9 % Sodium Chloride 100 ML IVPB SCH ×3 (05:31→22:45)
[2021-02-06] MEDS: Lactobacillus 1 EACH CAP.SPRINK PO SCH ×2 (08:25→22:23)
[2021-02-06] MEDS: Metoprolol XL (24 HR) Succ 25 MG TAB.ER.24H PO SCH (08:25)
[2021-02-06] MEDS: Aspirin 81 MG TAB.CHEW PO SCH (08:25)
[2021-02-06] MEDS: Insulin LISPRO 300 UNITS/3 ML VIAL SUBQ SCH ×6 (08:26→17:22)
[2021-02-06 08:44] LABS: Basophils # 0.1 K/mcL (0.0-0.2); Eosinophils # 0.2 K/mcL (0.0-0.6); Eosinophils % 3.9 %; Hematocrit 41.2 % (37.5-50.1); Immature Granulocytes % 0.2 % (0-4); Lymphocytes # 0.9 K/mcL (0.6-4.6); Lymphocytes % 15.3 %; Mean Corpuscular HGB Conc 31.6 g/dL (31.6-35.5); Mean Corpuscular Hemoglobin 27.6 pg (28.0-33.3); Mean Corpuscular Volume 87.5 fL (83.0-100.0); Mean Platelet Volume 11.1 fL (9.4-12.4); Monocytes # 0.5 K/mcL (0.0-1.3); Monocytes % 9.1 %; Neutrophils # 4.1 K/mcL (1.6-8.9); Platelet Count 252 K/mcL (140-400); Red Blood Count 4.71 M/mcL (4.19-5.50); Segmented Neutrophils % 70.5 %; White Blood Count 5.8 K/mcL (4.3-11.1)
[2021-02-06 09:24] LABS: INR 1.7; Prothrombin Time 19.3 Seconds (9.4-12.1)
[2021-02-06 09:30] LABS: Albumin 3.5 g/dL (3.5-5.7); Albumin/Globulin Ratio 1.2 (1.1-2.2); Bilirubin,Total 0.3 mg/dL (0.3-1.0); Calcium 9.1 mg/dL (8.6-10.3); Globulin 2.9 g/dL (2.4-3.5); Potassium 4.1 mEq/L (3.5-5.1); Total Protein 6.4 g/dL (6.4-8.9)
[2021-02-06] MEDS ORDERED: *HR* Warfarin 3 MG TABLET PO ONE (18:00)
[2021-02-06] MEDS: Insulin DETEMIR 100 UNIT/ML X5UNITS SUBQ SCH (22:21)
[2021-02-07 08:01] LABS: INR 1.7; Prothrombin Time 19.8 Seconds (9.4-12.1)
[2021-02-07] MEDS ORDERED: Ergocalciferol (VIT D2) 50,000 UNIT (1.25MG) CAP PO SCH (09:00)
[2021-02-07] MEDS: ceFAZolin 2,000 MG in 0.9 % Sodium Chloride 100 ML IVPB SCH ×3 (09:25→23:38)
[2021-02-07] MEDS: Metoprolol XL (24 HR) Succ 25 MG TAB.ER.24H PO SCH (09:25)
[2021-02-07] MEDS: Aspirin 81 MG TAB.CHEW PO SCH (09:25)
[2021-02-07] MEDS: Lactobacillus 1 EACH CAP.SPRINK PO SCH ×2 (09:25→21:38)
[2021-02-07] MEDS: Insulin LISPRO 300 UNITS/3 ML VIAL SUBQ SCH ×4 (09:26→12:01)
[2021-02-07] MEDS: Ergocalciferol (VIT D2) 50,000 UNIT (1.25MG) CAP PO SCH (09:30)
[2021-02-07] MEDS ORDERED: *HR* Warfarin 7.5 MG TABLET PO ONE (18:00)
[2021-02-07] MEDS: Insulin DETEMIR 100 UNIT/ML X5UNITS SUBQ SCH (21:38)
[2021-02-08] MEDS ORDERED: Vicks Vaporub Oint 50 GM PACKAGE TP PRN (02:23)
[2021-02-08] MEDS: ceFAZolin 2,000 MG in 0.9 % Sodium Chloride 100 ML IVPB SCH ×3 (06:21→23:32)
[2021-02-08 07:39] LABS: INR 1.7; Prothrombin Time 19.8 Seconds (9.4-12.1)
[2021-02-08] MEDS: Insulin LISPRO 300 UNITS/3 ML VIAL SUBQ SCH ×8 (09:08→17:49)
[2021-02-08] MEDS: Metoprolol XL (24 HR) Succ 25 MG TAB.ER.24H PO SCH ×2 (09:19→19:00)
[2021-02-08] MEDS: Aspirin 81 MG TAB.CHEW PO SCH (09:19)
[2021-02-08] MEDS: Lactobacillus 1 EACH CAP.SPRINK PO SCH ×2 (09:20→20:27)
[2021-02-08] MEDS ORDERED: *HR* Warfarin 7.5 MG TABLET PO ONE (18:00)
[2021-02-08] MEDS: Insulin DETEMIR 100 UNIT/ML X5UNITS SUBQ SCH (20:27)
[2021-02-09 07:20] LABS: INR 1.9; Prothrombin Time 21.8 Seconds (9.4-12.1)
[2021-02-09] MEDS: ceFAZolin 2,000 MG in 0.9 % Sodium Chloride 100 ML IVPB SCH ×3 (08:02→23:39)
[2021-02-09] MEDS: Insulin LISPRO 300 UNITS/3 ML VIAL SUBQ SCH ×6 (08:03→17:15)
[2021-02-09] MEDS: Aspirin 81 MG TAB.CHEW PO SCH (08:04)
[2021-02-09] MEDS: Metoprolol XL (24 HR) Succ 25 MG TAB.ER.24H PO SCH (08:04)
[2021-02-09] MEDS: Lactobacillus 1 EACH CAP.SPRINK PO SCH ×2 (08:04→20:45)
[2021-02-09] MEDS ORDERED: *HR* Warfarin 7.5 MG TABLET PO ONE (18:00)
[2021-02-09] MEDS: Insulin DETEMIR 100 UNIT/ML X5UNITS SUBQ SCH (20:45)
[2021-02-10] MEDS: ceFAZolin 2,000 MG in 0.9 % Sodium Chloride 100 ML IVPB SCH ×3 (06:48→23:06)
[2021-02-10 07:20] LABS: INR 1.9; Prothrombin Time 22.1 Seconds (9.4-12.1)
[2021-02-10] MEDS: Aspirin 81 MG TAB.CHEW PO SCH (07:51)
[2021-02-10] MEDS: Lactobacillus 1 EACH CAP.SPRINK PO SCH ×2 (07:51→21:45)
[2021-02-10] MEDS: Metoprolol XL (24 HR) Succ 25 MG TAB.ER.24H PO SCH (07:52)
[2021-02-10] MEDS: Insulin LISPRO 300 UNITS/3 ML VIAL SUBQ SCH ×6 (08:04→15:55)
[2021-02-10 16:01] LABS: Calcium 8.7 mg/dL (8.6-10.3); Magnesium 1.9 mg/dL (1.6-2.6); Potassium 4.8 mEq/L (3.5-5.1)
[2021-02-10] MEDS: Insulin DETEMIR 100 UNIT/ML X5UNITS SUBQ SCH (21:45)
[2021-02-11] MEDS: ceFAZolin 2,000 MG in 0.9 % Sodium Chloride 100 ML IVPB SCH ×3 (06:31→23:05)
[2021-02-11] MEDS: Insulin LISPRO 300 UNITS/3 ML VIAL SUBQ SCH ×6 (07:40→16:59)
[2021-02-11] MEDS: Lactobacillus 1 EACH CAP.SPRINK PO SCH ×2 (09:35→21:25)
[2021-02-11] MEDS: Metoprolol XL (24 HR) Succ 25 MG TAB.ER.24H PO SCH (09:35)
[2021-02-11] MEDS: Aspirin 81 MG TAB.CHEW PO SCH (09:35)
[2021-02-11 09:43] LABS: INR 2.1; Prothrombin Time 23.5 Seconds (9.4-12.1)
[2021-02-11] MEDS ORDERED: *HR* Warfarin 7.5 MG TABLET PO ONE (18:00)
[2021-02-11] MEDS: Insulin DETEMIR 100 UNIT/ML X5UNITS SUBQ SCH (21:25)
[2021-02-12] MEDS: ceFAZolin 2,000 MG in 0.9 % Sodium Chloride 100 ML IVPB SCH ×3 (07:11→23:24)
[2021-02-12] MEDS: Insulin LISPRO 300 UNITS/3 ML VIAL SUBQ SCH ×6 (07:51→16:34)
[2021-02-12 08:42] LABS: Prothrombin Time 22.4 Seconds (9.4-12.1)
[2021-02-12] MEDS: Metoprolol XL (24 HR) Succ 25 MG TAB.ER.24H PO SCH (08:47)
[2021-02-12] MEDS: Lactobacillus 1 EACH CAP.SPRINK PO SCH ×2 (08:47→21:53)
[2021-02-12] MEDS: Aspirin 81 MG TAB.CHEW PO SCH (08:47)
[2021-02-12] MEDS ORDERED: *HR* Warfarin 4 MG TABLET PO ONE (18:00)
[2021-02-12] MEDS: Insulin DETEMIR 100 UNIT/ML X5UNITS SUBQ SCH (21:54)
[2021-02-13] MEDS: ceFAZolin 2,000 MG in 0.9 % Sodium Chloride 100 ML IVPB SCH ×3 (06:32→23:32)
[2021-02-13 07:41] LABS: Hematocrit 37.5 % (37.5-50.1); Hemoglobin 11.9 g/dL (12.9-16.9); Immature Granulocytes % 0.2 % (0-4); Mean Corpuscular HGB Conc 31.7 g/dL (31.6-35.5); Mean Corpuscular Hemoglobin 27.7 pg (28.0-33.3); Mean Corpuscular Volume 87.4 fL (83.0-100.0); Mean Platelet Volume 11.6 fL (9.4-12.4); Platelet Count 246 K/mcL (140-400); Red Blood Count 4.29 M/mcL (4.19-5.50); Red Cell Distribution Width 15.1 % (11.5-14.5); Segmented Neutrophils % 67.9 %; White Blood Count 5.7 K/mcL (4.3-11.1)
[2021-02-13 07:42] LABS: Basophils # 0.1 K/mcL (0.0-0.2); Basophils % 1.2 %; Eosinophils # 0.2 K/mcL (0.0-0.6); Lymphocytes # 0.9 K/mcL (0.6-4.6); Monocytes # 0.6 K/mcL (0.0-1.3); Monocytes % 10.7 %; Neutrophils # 3.9 K/mcL (1.6-8.9)
[2021-02-13 07:49] LABS: INR 2.2; Prothrombin Time 24.4 Seconds (9.4-12.1)
[2021-02-13 08:00] LABS: Albumin 3.3 g/dL (3.5-5.7); Albumin/Globulin Ratio 1.2 (1.1-2.2); Bilirubin,Total 0.2 mg/dL (0.3-1.0); Calcium 8.7 mg/dL (8.6-10.3); Globulin 2.7 g/dL (2.4-3.5); Potassium 4.2 mEq/L (3.5-5.1)
[2021-02-13] MEDS ORDERED: ceFAZolin 2,000 MG in 0.9 % Sodium Chloride 100 ML IVPB SCH (08:00)
[2021-02-13] MEDS: Insulin LISPRO 300 UNITS/3 ML VIAL SUBQ SCH ×6 (08:10→16:45)
[2021-02-13] MEDS: Lactobacillus 1 EACH CAP.SPRINK PO SCH ×2 (08:12→22:23)
[2021-02-13] MEDS: Aspirin 81 MG TAB.CHEW PO SCH (08:12)
[2021-02-13] MEDS: Metoprolol XL (24 HR) Succ 25 MG TAB.ER.24H PO SCH (08:12)
[2021-02-13] MEDS ORDERED: *HR* Warfarin 7.5 MG TABLET PO ONE (18:00)
[2021-02-13] MEDS: Insulin DETEMIR 100 UNIT/ML X5UNITS SUBQ SCH (22:23)
[2021-02-14] MEDS: ceFAZolin 2,000 MG in 0.9 % Sodium Chloride 100 ML IVPB SCH ×3 (06:15→23:00)
[2021-02-14] MEDS: Aspirin 81 MG TAB.CHEW PO SCH (07:59)
[2021-02-14] MEDS: Metoprolol XL (24 HR) Succ 25 MG TAB.ER.24H PO SCH (07:59)
[2021-02-14 08:00] LABS: INR 2.3; Prothrombin Time 26.3 Seconds (9.4-12.1)
[2021-02-14] MEDS: Insulin LISPRO 300 UNITS/3 ML VIAL SUBQ SCH ×6 (08:00→16:32)
[2021-02-14] MEDS: Lactobacillus 1 EACH CAP.SPRINK PO SCH ×2 (08:00→20:51)
[2021-02-14] MEDS: Ergocalciferol (VIT D2) 50,000 UNIT (1.25MG) CAP PO SCH (08:00)
[2021-02-14] MEDS ORDERED: *HR* Warfarin 3 MG TABLET PO ONE (18:00)
[2021-02-14] MEDS: Insulin DETEMIR 100 UNIT/ML X5UNITS SUBQ SCH (20:51)
[2021-02-15 06:25] VITALS: BP 130/88
[2021-02-15 07:13] LABS: INR 2.2; Prothrombin Time 25.1 Seconds (9.4-12.1)
[2021-02-15] MEDS: Aspirin 81 MG TAB.CHEW PO SCH (08:47)
[2021-02-15] MEDS: Insulin LISPRO 300 UNITS/3 ML VIAL SUBQ SCH ×2 (08:48)
[2021-02-15] MEDS: Metoprolol XL (24 HR) Succ 25 MG TAB.ER.24H PO SCH (08:48)
[2021-02-15] MEDS: Lactobacillus 1 EACH CAP.SPRINK PO SCH (08:48)
[2021-02-15] MEDS ORDERED: *HR* Warfarin 3 MG TABLET PO ONE (18:00)
== END 2021-02-15 11:47 | disposition home or self-care (01) | DRG 946 ==
LOC: INPPIK 15:35
PROVIDERS: ADMIT Family Medicine; ATTEND Family Medicine

== ENCOUNTER 2022-07-05 16:47 | Inpatient (IN) ==
[2022-07-05] MEDS ORDERED: Nitroglycerin 0.4 MG TAB.SUBL SL PRN (18:20)
[2022-07-05] MEDS ORDERED: Acetaminophen 325 MG TABLET PO PRN (18:20)
[2022-07-05] MEDS ORDERED: D5% in Water 1,000 ML IVC PRN (18:29)
[2022-07-05] MEDS ORDERED: Dextrose Gel 15 GM/37.5 ML TUBE PO PRN ×2 (18:29)
[2022-07-05] MEDS ORDERED: *HR* Dextrose 50 % in Water (Syg) 50 ML SYRINGE IVP PRN (18:29)
[2022-07-05] MEDS ORDERED: *HR* Alteplase (Cathflo) 2 MG VIAL IVP ONE (18:31)
[2022-07-05] MEDS ORDERED: Vancomycin 1,750 MG in 0.9 % Sodium Chloride 250 ML IVPB SCH (19:00)
[2022-07-05] MEDS ORDERED: Insulin DETEMIR 100 UNIT/ML per UNIT SUBQ ONE (21:00)
[2022-07-05] MEDS: *HR* OxyCODONE Immed Rel 5 MG TABLET PO PRN (23:00)
[2022-07-05] MEDS: Insulin LISPRO 300 UNITS/3 ML VIAL SUBQ SCH (23:19)
[2022-07-05] MEDS: *HR* Enoxaparin 80 MG/0.8 ML SYRINGE SQ SCH (23:50)
[2022-07-05] MEDS: ceFAZolin 1,000 MG in 0.9 % Sodium Chloride Mini Bag 100 ML IVPB SCH (23:56)
[2022-07-06 01:10] LABS: BUN/Creatinine Ratio 10 (6-26); Blood Urea Nitrogen 21 mg/dL (8-23); eGFR For African Americans 39 (> 60); eGFR For Non-African Americans 32 (> 60)
[2022-07-06] MEDS: ceFAZolin 1,000 MG in 0.9 % Sodium Chloride Mini Bag 100 ML IVPB SCH ×5 (03:38→22:17)
[2022-07-06 07:59] LABS: Basophils # 0.1 K/mcL (0.0-0.2); Basophils % 1.1 %; Eosinophils # 0.1 K/mcL (0.0-0.6); Hematocrit 25.4 % (37.5-50.1); Immature Granulocytes % 0.4 % (0-4); Lymphocytes # 0.9 K/mcL (0.6-4.6); Lymphocytes % 18.6 %; Mean Corpuscular HGB Conc 31.5 g/dL (31.6-35.5); Mean Corpuscular Hemoglobin 28.5 pg (28.0-33.3); Mean Corpuscular Volume 90.4 fL (83.0-100.0); Mean Platelet Volume 10.9 fL (9.4-12.4); Monocytes # 0.6 K/mcL (0.0-1.3); Monocytes % 13.6 %; Neutrophils # 2.9 K/mcL (1.6-8.9); Platelet Count 198 K/mcL (140-400); Red Blood Count 2.81 M/mcL (4.19-5.50); Red Cell Distribution Width 15.9 % (11.5-14.5); Segmented Neutrophils % 63.3 %; White Blood Count 4.6 K/mcL (4.3-11.1)
[2022-07-06 08:09] LABS: Calcium 8.2 mg/dL (8.6-10.3); Potassium 4.4 mEq/L (3.5-5.1)
[2022-07-06] MEDS: Metoprolol XL (24 HR) Succ 25 MG TAB.ER.24H PO SCH (08:32)
[2022-07-06] MEDS: Spironolactone 25 MG TABLET PO SCH (08:32)
[2022-07-06] MEDS: Insulin LISPRO 300 UNITS/3 ML VIAL SUBQ SCH ×4 (08:34→23:23)
[2022-07-06] MEDS: *HR* Enoxaparin 80 MG/0.8 ML SYRINGE SQ SCH ×2 (08:37→23:24)
[2022-07-06] MEDS ORDERED: Ergocalciferol (VIT D2) 50,000 UNIT (1.25MG) CAP PO SCH (09:00)
[2022-07-06] MEDS: Ergocalciferol (VIT D2) 50,000 UNIT (1.25MG) CAP PO SCH (12:09)
[2022-07-06] MEDS: MICAFUNGIN IVPB SCH (14:55)
[2022-07-06] MEDS: SODIUM CHLORIDE 0.9% IVPB SCH (14:55)
[2022-07-06] MEDS ORDERED: *HR* Warfarin 3 MG TABLET PO SCH (18:00)
[2022-07-06] MEDS: Insulin DETEMIR 100 UNIT/ML X5UNITS SUBQ SCH (23:24)
[2022-07-07] MEDS: ceFAZolin 1,000 MG in 0.9 % Sodium Chloride Mini Bag 100 ML IVPB SCH ×6 (00:33→20:55)
[2022-07-07] MEDS: Vancomycin 1,750 MG/517.5 ML IV.SOLN IVPB SCH (00:37)
[2022-07-07] MEDS: Metoprolol XL (24 HR) Succ 25 MG TAB.ER.24H PO SCH (08:00)
[2022-07-07] MEDS: Spironolactone 25 MG TABLET PO SCH (08:00)
[2022-07-07] MEDS: *HR* Enoxaparin 80 MG/0.8 ML SYRINGE SQ SCH ×2 (08:01→19:43)
[2022-07-07] MEDS: Insulin LISPRO 300 UNITS/3 ML VIAL SUBQ SCH ×4 (08:23→20:56)
[2022-07-07 11:53] LABS: Basophils # 0.1 K/mcL (0.0-0.2); Eosinophils # 0.1 K/mcL (0.0-0.6); Eosinophils % 2.4 %; Hematocrit 28.1 % (37.5-50.1); Hemoglobin 8.8 g/dL (12.9-16.9); Immature Granulocytes % 0.5 % (0-4); Lymphocytes # 0.9 K/mcL (0.6-4.6); Lymphocytes % 15.6 %; Mean Corpuscular HGB Conc 31.3 g/dL (31.6-35.5); Mean Corpuscular Hemoglobin 28.4 pg (28.0-33.3); Mean Corpuscular Volume 90.6 fL (83.0-100.0); Mean Platelet Volume 11.4 fL (9.4-12.4); Monocytes # 0.7 K/mcL (0.0-1.3); Monocytes % 11.7 %; Neutrophils # 4.1 K/mcL (1.6-8.9); Platelet Count 212 K/mcL (140-400); Red Cell Distribution Width 15.9 % (11.5-14.5); Segmented Neutrophils % 68.8 %; White Blood Count 5.9 K/mcL (4.3-11.1)
[2022-07-07 12:21] LABS: Calcium 8.4 mg/dL (8.6-10.3); Potassium 5.1 mEq/L (3.5-5.1)
[2022-07-07] MEDS: SODIUM CHLORIDE 0.9% IVPB SCH ×2 (15:11→15:21)
[2022-07-07] MEDS: MICAFUNGIN IVPB SCH ×2 (15:11→15:21)
[2022-07-07] MEDS: Insulin DETEMIR 100 UNIT/ML X5UNITS SUBQ SCH (20:56)
[2022-07-08] MEDS: Vancomycin 1,750 MG/517.5 ML IV.SOLN IVPB SCH (01:08)
[2022-07-08] MEDS: ceFAZolin 1,000 MG in 0.9 % Sodium Chloride Mini Bag 100 ML IVPB SCH ×6 (02:49→21:07)
[2022-07-08] MEDS: *HR* Enoxaparin 80 MG/0.8 ML SYRINGE SQ SCH ×2 (07:37→19:28)
[2022-07-08] MEDS: Spironolactone 25 MG TABLET PO SCH (07:37)
[2022-07-08] MEDS: Metoprolol XL (24 HR) Succ 25 MG TAB.ER.24H PO SCH (07:38)
[2022-07-08] MEDS: Insulin LISPRO 300 UNITS/3 ML VIAL SUBQ SCH ×4 (07:40→21:09)
[2022-07-08] MEDS: SODIUM CHLORIDE 0.9% IVPB SCH (15:59)
[2022-07-08] MEDS: MICAFUNGIN IVPB SCH (15:59)
[2022-07-08] MEDS: Insulin DETEMIR 100 UNIT/ML X5UNITS SUBQ SCH (21:09)
[2022-07-09] MEDS: Vancomycin 1,750 MG/517.5 ML IV.SOLN IVPB SCH ×2 (00:56→23:44)
[2022-07-09] MEDS: *HR* OxyCODONE Immed Rel 5 MG TABLET PO PRN (01:35)
[2022-07-09] MEDS: ceFAZolin 1,000 MG in 0.9 % Sodium Chloride Mini Bag 100 ML IVPB SCH ×7 (04:31→23:42)
[2022-07-09] MEDS: *HR* Enoxaparin 80 MG/0.8 ML SYRINGE SQ SCH ×2 (08:34→19:45)
[2022-07-09] MEDS: Metoprolol XL (24 HR) Succ 25 MG TAB.ER.24H PO SCH (08:36)
[2022-07-09] MEDS: Spironolactone 25 MG TABLET PO SCH (08:36)
[2022-07-09] MEDS: Insulin LISPRO 300 UNITS/3 ML VIAL SUBQ SCH ×4 (08:37→19:54)
[2022-07-09] MEDS: Insulin DETEMIR 100 UNIT/ML X5UNITS SUBQ SCH ×2 (08:42→19:54)
[2022-07-09 09:09] LABS: Basophils # 0.1 K/mcL (0.0-0.2); Basophils % 1.4 %; Eosinophils # 0.1 K/mcL (0.0-0.6); Eosinophils % 2.6 %; Hematocrit 26.3 % (37.5-50.1); Hemoglobin 8.4 g/dL (12.9-16.9); Immature Granulocytes % 0.6 % (0-4); Lymphocytes # 0.9 K/mcL (0.6-4.6); Lymphocytes % 18.2 %; Mean Corpuscular HGB Conc 31.9 g/dL (31.6-35.5); Mean Corpuscular Hemoglobin 28.8 pg (28.0-33.3); Mean Corpuscular Volume 90.1 fL (83.0-100.0); Mean Platelet Volume 11.4 fL (9.4-12.4); Monocytes # 0.6 K/mcL (0.0-1.3); Monocytes % 12.5 %; Neutrophils # 3.3 K/mcL (1.6-8.9); Platelet Count 224 K/mcL (140-400); Red Blood Count 2.92 M/mcL (4.19-5.50); Red Cell Distribution Width 15.4 % (11.5-14.5); Segmented Neutrophils % 64.7 %; White Blood Count 5.1 K/mcL (4.3-11.1)
[2022-07-09 09:35] LABS: Calcium 8.2 mg/dL (8.6-10.3); Magnesium 1.4 mg/dL (1.6-2.6); Potassium 4.7 mEq/L (3.5-5.1)
[2022-07-09] MEDS: SODIUM CHLORIDE 0.9% IVPB SCH (15:38)
[2022-07-09] MEDS: MICAFUNGIN IVPB SCH (15:38)
[2022-07-10] MEDS: ceFAZolin 1,000 MG in 0.9 % Sodium Chloride Mini Bag 100 ML IVPB SCH ×5 (03:27→19:59)
[2022-07-10] MEDS: *HR* Enoxaparin 80 MG/0.8 ML SYRINGE SQ SCH ×2 (07:57→20:02)
[2022-07-10] MEDS: Metoprolol XL (24 HR) Succ 25 MG TAB.ER.24H PO SCH (07:57)
[2022-07-10] MEDS: Spironolactone 25 MG TABLET PO SCH (07:57)
[2022-07-10] MEDS: Insulin LISPRO 300 UNITS/3 ML VIAL SUBQ SCH ×4 (07:57→20:03)
[2022-07-10] MEDS: Insulin DETEMIR 100 UNIT/ML X5UNITS SUBQ SCH ×2 (10:59→20:03)
[2022-07-10] MEDS: MICAFUNGIN IVPB SCH (15:53)
[2022-07-10] MEDS: SODIUM CHLORIDE 0.9% IVPB SCH (15:53)
[2022-07-11] MEDS: ceFAZolin 1,000 MG in 0.9 % Sodium Chloride Mini Bag 100 ML IVPB SCH ×7 (00:09→20:19)
[2022-07-11] MEDS: Vancomycin 1,750 MG/517.5 ML IV.SOLN IVPB SCH (01:22)
[2022-07-11] MEDS ORDERED: Vancomycin 1,000 MG, Vancomycin 500 MG in 0.9 % Sodium Chloride 250 ML IVPB ONE (06:00)
[2022-07-11] MEDS: Spironolactone 25 MG TABLET PO SCH (08:04)
[2022-07-11] MEDS: *HR* Enoxaparin 80 MG/0.8 ML SYRINGE SQ SCH ×2 (08:05→20:17)
[2022-07-11] MEDS: Metoprolol XL (24 HR) Succ 25 MG TAB.ER.24H PO SCH (08:05)
[2022-07-11] MEDS: Insulin LISPRO 300 UNITS/3 ML VIAL SUBQ SCH ×4 (08:13→20:18)
[2022-07-11] MEDS: Insulin DETEMIR 100 UNIT/ML X5UNITS SUBQ SCH ×2 (08:16→20:17)
[2022-07-11] MEDS: Magnesium Oxide 400 MG TABLET PO SCH (08:17)
[2022-07-11] MEDS ORDERED: Vancomycin 1,500 MG/265 ML IV.SOLN IVPB SCH (10:00)
[2022-07-11] MEDS: SODIUM CHLORIDE 0.9% IVPB SCH (16:20)
[2022-07-11] MEDS: MICAFUNGIN IVPB SCH (16:20)
[2022-07-11] MEDS: Vancomycin 1,500 MG/265 ML IV.SOLN IVPB SCH (18:10)
[2022-07-12] MEDS: ceFAZolin 1,000 MG in 0.9 % Sodium Chloride Mini Bag 100 ML IVPB SCH ×6 (01:33→20:59)
[2022-07-12 06:29] LABS: Hematocrit 28.4 % (37.5-50.1); Hemoglobin 8.8 g/dL (12.9-16.9); Mean Corpuscular Volume 90.4 fL (83.0-100.0); Mean Platelet Volume 11.6 fL (9.4-12.4); Platelet Count 228 K/mcL (140-400); Red Blood Count 3.14 M/mcL (4.19-5.50); Red Cell Distribution Width 15.7 % (11.5-14.5); White Blood Count 6.5 K/mcL (4.3-11.1)
[2022-07-12 06:50] LABS: Calcium 8.4 mg/dL (8.6-10.3); Potassium 4.5 mEq/L (3.5-5.1)
[2022-07-12] MEDS: Magnesium Oxide 400 MG TABLET PO SCH (07:50)
[2022-07-12] MEDS: Spironolactone 25 MG TABLET PO SCH (07:50)
[2022-07-12] MEDS: *HR* Enoxaparin 80 MG/0.8 ML SYRINGE SQ SCH ×2 (07:51→23:10)
[2022-07-12] MEDS: Metoprolol XL (24 HR) Succ 25 MG TAB.ER.24H PO SCH (07:51)
[2022-07-12] MEDS: Insulin LISPRO 300 UNITS/3 ML VIAL SUBQ SCH ×4 (07:55→23:08)
[2022-07-12] MEDS: Insulin DETEMIR 100 UNIT/ML X5UNITS SUBQ SCH ×2 (08:03→23:09)
[2022-07-12] MEDS: SODIUM CHLORIDE 0.9% IVPB SCH (16:41)
[2022-07-12] MEDS: MICAFUNGIN IVPB SCH (16:41)
[2022-07-12] MEDS: Furosemide 40 MG TABLET PO SCH (16:45)
[2022-07-12] MEDS: Vancomycin 1,500 MG/265 ML IV.SOLN IVPB SCH (18:50)
[2022-07-13] MEDS: ceFAZolin 1,000 MG in 0.9 % Sodium Chloride Mini Bag 100 ML IVPB SCH ×6 (01:17→23:51)
[2022-07-13] MEDS: *HR* Enoxaparin 80 MG/0.8 ML SYRINGE SQ SCH ×2 (09:26→19:30)
[2022-07-13] MEDS: Spironolactone 25 MG TABLET PO SCH (09:27)
[2022-07-13] MEDS: Magnesium Oxide 400 MG TABLET PO SCH (09:27)
[2022-07-13] MEDS: Insulin LISPRO 300 UNITS/3 ML VIAL SUBQ SCH ×4 (09:27→20:59)
[2022-07-13] MEDS: Furosemide 40 MG TABLET PO SCH (09:27)
[2022-07-13] MEDS: Metoprolol XL (24 HR) Succ 25 MG TAB.ER.24H PO SCH (09:27)
[2022-07-13] MEDS: Insulin DETEMIR 100 UNIT/ML X5UNITS SUBQ SCH ×2 (12:34→20:59)
[2022-07-13] MEDS: Ergocalciferol (VIT D2) 50,000 UNIT (1.25MG) CAP PO SCH (12:34)
[2022-07-13] MEDS: MICAFUNGIN IVPB SCH (15:29)
[2022-07-13] MEDS: SODIUM CHLORIDE 0.9% IVPB SCH (15:29)
[2022-07-13] MEDS: Vancomycin 1,500 MG/265 ML IV.SOLN IVPB SCH (18:45)
[2022-07-14] MEDS: ceFAZolin 1,000 MG in 0.9 % Sodium Chloride Mini Bag 100 ML IVPB SCH ×6 (04:00→21:58)
[2022-07-14] MEDS: Metoprolol XL (24 HR) Succ 25 MG TAB.ER.24H PO SCH (07:54)
[2022-07-14] MEDS: *HR* Enoxaparin 80 MG/0.8 ML SYRINGE SQ SCH ×2 (07:54→20:37)
[2022-07-14] MEDS: Magnesium Oxide 400 MG TABLET PO SCH (07:54)
[2022-07-14] MEDS: Spironolactone 25 MG TABLET PO SCH (07:55)
[2022-07-14] MEDS: Furosemide 40 MG TABLET PO SCH (07:55)
[2022-07-14] MEDS: Insulin LISPRO 300 UNITS/3 ML VIAL SUBQ SCH ×4 (07:55→20:37)
[2022-07-14] MEDS: Insulin DETEMIR 100 UNIT/ML X5UNITS SUBQ SCH ×2 (12:06→20:37)
[2022-07-14] MEDS: SODIUM CHLORIDE 0.9% IVPB SCH (15:09)
[2022-07-14] MEDS: MICAFUNGIN IVPB SCH (15:09)
[2022-07-14] MEDS: Vancomycin 1,500 MG/265 ML IV.SOLN IVPB SCH (17:53)
[2022-07-15] MEDS: ceFAZolin 1,000 MG in 0.9 % Sodium Chloride Mini Bag 100 ML IVPB SCH ×6 (01:55→23:07)
[2022-07-15] MEDS: Magnesium Oxide 400 MG TABLET PO SCH (09:16)
[2022-07-15] MEDS: Spironolactone 25 MG TABLET PO SCH (09:16)
[2022-07-15] MEDS: Insulin DETEMIR 100 UNIT/ML X5UNITS SUBQ SCH ×2 (09:16→20:16)
[2022-07-15] MEDS: Furosemide 40 MG TABLET PO SCH (09:16)
[2022-07-15] MEDS: *HR* Enoxaparin 80 MG/0.8 ML SYRINGE SQ SCH ×2 (09:17→20:16)
[2022-07-15] MEDS: Metoprolol XL (24 HR) Succ 25 MG TAB.ER.24H PO SCH (09:17)
[2022-07-15] MEDS: Insulin LISPRO 300 UNITS/3 ML VIAL SUBQ SCH ×4 (09:17→20:17)
[2022-07-15] MEDS: SODIUM CHLORIDE 0.9% IVPB SCH (15:55)
[2022-07-15] MEDS: MICAFUNGIN IVPB SCH (15:55)
[2022-07-15] MEDS: Vancomycin 1,500 MG/265 ML IV.SOLN IVPB SCH (18:26)
[2022-07-16] MEDS: ceFAZolin 1,000 MG in 0.9 % Sodium Chloride Mini Bag 100 ML IVPB SCH ×5 (02:54→23:46)
[2022-07-16 06:14] LABS: Basophils # 0.1 K/mcL (0.0-0.2); Basophils % 1.1 %; Eosinophils # 0.1 K/mcL (0.0-0.6); Eosinophils % 2.7 %; Hematocrit 29.6 % (37.5-50.1); Hemoglobin 9.3 g/dL (12.9-16.9); Immature Granulocytes % 0.2 % (0-4); Lymphocytes # 0.8 K/mcL (0.6-4.6); Lymphocytes % 18.4 %; Mean Corpuscular HGB Conc 31.4 g/dL (31.6-35.5); Mean Corpuscular Hemoglobin 28.1 pg (28.0-33.3); Mean Corpuscular Volume 89.4 fL (83.0-100.0); Mean Platelet Volume 12.2 fL (9.4-12.4); Monocytes # 0.5 K/mcL (0.0-1.3); Monocytes % 11.5 %; Platelet Count 194 K/mcL (140-400); Red Blood Count 3.31 M/mcL (4.19-5.50); Red Cell Distribution Width 15.4 % (11.5-14.5); Segmented Neutrophils % 66.1 %; White Blood Count 4.5 K/mcL (4.3-11.1)
[2022-07-16 06:35] LABS: Potassium 4.2 mEq/L (3.5-5.1)
[2022-07-16] MEDS: Magnesium Oxide 400 MG TABLET PO SCH (09:19)
[2022-07-16] MEDS: Furosemide 40 MG TABLET PO SCH (09:19)
[2022-07-16] MEDS: Spironolactone 25 MG TABLET PO SCH (09:19)
[2022-07-16] MEDS: Metoprolol XL (24 HR) Succ 25 MG TAB.ER.24H PO SCH (09:19)
[2022-07-16] MEDS: Insulin LISPRO 300 UNITS/3 ML VIAL SUBQ SCH ×4 (09:20→21:06)
[2022-07-16] MEDS: *HR* Enoxaparin 80 MG/0.8 ML SYRINGE SQ SCH ×2 (09:21→20:24)
[2022-07-16] MEDS: Insulin DETEMIR 100 UNIT/ML X5UNITS SUBQ SCH ×2 (09:46→22:16)
[2022-07-16] MEDS: MICAFUNGIN IVPB SCH (15:12)
[2022-07-16] MEDS: SODIUM CHLORIDE 0.9% IVPB SCH (15:12)
[2022-07-16] MEDS: Vancomycin 1,250 MG/262.5 ML IV.SOLN IVPB SCH (23:47)
[2022-07-17] MEDS: ceFAZolin 1,000 MG in 0.9 % Sodium Chloride Mini Bag 100 ML IVPB SCH ×3 (05:27→18:49)
[2022-07-17] MEDS: Insulin LISPRO 300 UNITS/3 ML VIAL SUBQ SCH ×4 (08:20→19:47)
[2022-07-17] MEDS: *HR* Enoxaparin 80 MG/0.8 ML SYRINGE SQ SCH ×2 (08:21→19:46)
[2022-07-17] MEDS: Metoprolol XL (24 HR) Succ 25 MG TAB.ER.24H PO SCH (08:21)
[2022-07-17] MEDS: Magnesium Oxide 400 MG TABLET PO SCH (08:21)
[2022-07-17] MEDS: Spironolactone 25 MG TABLET PO SCH (08:21)
[2022-07-17] MEDS: Furosemide 40 MG TABLET PO SCH (08:21)
[2022-07-17] MEDS: Insulin DETEMIR 100 UNIT/ML X5UNITS SUBQ SCH ×2 (08:22→19:46)
[2022-07-17] MEDS: SODIUM CHLORIDE 0.9% IVPB SCH (15:23)
[2022-07-17] MEDS: MICAFUNGIN IVPB SCH (15:23)
[2022-07-17] MEDS: Vancomycin 1,250 MG/262.5 ML IV.SOLN IVPB SCH (21:01)
[2022-07-18] MEDS: ceFAZolin 1,000 MG in 0.9 % Sodium Chloride Mini Bag 100 ML IVPB SCH ×5 (00:13→23:38)
[2022-07-18] MEDS: *HR* Enoxaparin 80 MG/0.8 ML SYRINGE SQ SCH ×2 (08:03→20:37)
[2022-07-18] MEDS: Spironolactone 25 MG TABLET PO SCH (08:03)
[2022-07-18] MEDS: Magnesium Oxide 400 MG TABLET PO SCH (08:03)
[2022-07-18] MEDS: Furosemide 40 MG TABLET PO SCH (08:03)
[2022-07-18] MEDS: Metoprolol XL (24 HR) Succ 25 MG TAB.ER.24H PO SCH (08:03)
[2022-07-18] MEDS: Insulin LISPRO 300 UNITS/3 ML VIAL SUBQ SCH ×4 (08:04→20:35)
[2022-07-18] MEDS: Insulin DETEMIR 100 UNIT/ML X5UNITS SUBQ SCH ×2 (08:59→20:36)
[2022-07-18] MEDS: MICAFUNGIN IVPB SCH (16:00)
[2022-07-18] MEDS: SODIUM CHLORIDE 0.9% IVPB SCH (16:00)
[2022-07-18] MEDS: Vancomycin 1,250 MG/262.5 ML IV.SOLN IVPB SCH (20:36)
[2022-07-19] MEDS: ceFAZolin 1,000 MG in 0.9 % Sodium Chloride Mini Bag 100 ML IVPB SCH ×3 (05:30→18:23)
[2022-07-19 05:55] LABS: Basophils % 1.5 %; Eosinophils # 0.1 K/mcL (0.0-0.6); Eosinophils % 3.4 %; Hematocrit 46.1 % (37.5-50.1); Hemoglobin 14.7 g/dL (12.9-16.9); Immature Granulocytes % 0.4 % (0-4); Lymphocytes # 0.4 K/mcL (0.6-4.6); Lymphocytes % 14.1 %; Mean Corpuscular HGB Conc 31.9 g/dL (31.6-35.5); Mean Corpuscular Hemoglobin 28.1 pg (28.0-33.3); Mean Platelet Volume 11.7 fL (9.4-12.4); Monocytes # 0.3 K/mcL (0.0-1.3); Monocytes % 11.4 %; Neutrophils # 1.8 K/mcL (1.6-8.9); Platelet Count 144 K/mcL (140-400); Red Blood Count 5.24 M/mcL (4.19-5.50); Red Cell Distribution Width 15.1 % (11.5-14.5); Segmented Neutrophils % 69.2 %; White Blood Count 2.6 K/mcL (4.3-11.1)
[2022-07-19 06:17] LABS: Calcium 8.6 mg/dL (8.6-10.3); Magnesium 1.8 mg/dL (1.6-2.6); Potassium 4.5 mEq/L (3.5-5.1)
[2022-07-19] MEDS: Insulin DETEMIR 100 UNIT/ML X5UNITS SUBQ SCH ×2 (10:12→20:27)
[2022-07-19] MEDS: Insulin LISPRO 300 UNITS/3 ML VIAL SUBQ SCH ×4 (10:13→20:29)
[2022-07-19] MEDS: Metoprolol XL (24 HR) Succ 25 MG TAB.ER.24H PO SCH (10:23)
[2022-07-19] MEDS: Spironolactone 25 MG TABLET PO SCH (10:23)
[2022-07-19] MEDS: Magnesium Oxide 400 MG TABLET PO SCH (10:23)
[2022-07-19] MEDS: Furosemide 40 MG TABLET PO SCH (10:23)
[2022-07-19] MEDS: *HR* Enoxaparin 80 MG/0.8 ML SYRINGE SQ SCH ×2 (10:24→20:27)
[2022-07-19] MEDS: MICAFUNGIN IVPB SCH (15:57)
[2022-07-19] MEDS: SODIUM CHLORIDE 0.9% IVPB SCH (15:57)
[2022-07-19] MEDS: Vancomycin 1,250 MG/262.5 ML IV.SOLN IVPB SCH (20:30)
[2022-07-20] MEDS: ceFAZolin 1,000 MG in 0.9 % Sodium Chloride Mini Bag 100 ML IVPB SCH ×5 (00:32→23:13)
[2022-07-20] MEDS: Insulin LISPRO 300 UNITS/3 ML VIAL SUBQ SCH ×4 (10:08→20:44)
[2022-07-20] MEDS: Insulin DETEMIR 100 UNIT/ML X5UNITS SUBQ SCH ×2 (10:08→20:45)
[2022-07-20] MEDS: Furosemide 40 MG TABLET PO SCH (10:09)
[2022-07-20] MEDS: Spironolactone 25 MG TABLET PO SCH (10:09)
[2022-07-20] MEDS: Lactobacillus 1 EACH CAP.SPRINK PO SCH (10:09)
[2022-07-20] MEDS: Metoprolol XL (24 HR) Succ 25 MG TAB.ER.24H PO SCH (10:09)
[2022-07-20] MEDS: Magnesium Oxide 400 MG TABLET PO SCH (10:09)
[2022-07-20] MEDS: *HR* Enoxaparin 80 MG/0.8 ML SYRINGE SQ SCH (10:09)
[2022-07-20] MEDS: Ergocalciferol (VIT D2) 50,000 UNIT (1.25MG) CAP PO SCH (11:43)
[2022-07-20] MEDS: SODIUM CHLORIDE 0.9% IVPB SCH (16:53)
[2022-07-20] MEDS: MICAFUNGIN IVPB SCH (16:53)
[2022-07-20] MEDS ORDERED: Warfarin perPT PO PRN (18:00)
[2022-07-20] MEDS: Vancomycin 1,250 MG/262.5 ML IV.SOLN IVPB SCH (20:04)
[2022-07-21] MEDS: ceFAZolin 1,000 MG in 0.9 % Sodium Chloride Mini Bag 100 ML IVPB SCH ×4 (05:17→23:53)
[2022-07-21] MEDS: Insulin LISPRO 300 UNITS/3 ML VIAL SUBQ SCH ×4 (10:35→21:55)
[2022-07-21] MEDS: Insulin DETEMIR 100 UNIT/ML X5UNITS SUBQ SCH ×2 (10:36→21:54)
[2022-07-21] MEDS: Magnesium Oxide 400 MG TABLET PO SCH (10:36)
[2022-07-21] MEDS: Lactobacillus 1 EACH CAP.SPRINK PO SCH (10:36)
[2022-07-21] MEDS: Furosemide 40 MG TABLET PO SCH (10:36)
[2022-07-21] MEDS: Spironolactone 25 MG TABLET PO SCH (10:36)
[2022-07-21] MEDS: Metoprolol XL (24 HR) Succ 25 MG TAB.ER.24H PO SCH (10:36)
[2022-07-21 13:17] LABS: INR 1.1; Prothrombin Time 12.5 Seconds (9.4-12.1)
[2022-07-21] MEDS ORDERED: *HR* Warfarin 3 MG TABLET PO STA (14:27)
[2022-07-21] MEDS: MICAFUNGIN IVPB SCH (15:15)
[2022-07-21] MEDS: SODIUM CHLORIDE 0.9% IVPB SCH (15:15)
[2022-07-21] MEDS: Vancomycin 1,250 MG/262.5 ML IV.SOLN IVPB SCH (21:56)
[2022-07-22] MEDS: ceFAZolin 1,000 MG in 0.9 % Sodium Chloride Mini Bag 100 ML IVPB SCH ×3 (05:36→18:23)
[2022-07-22] MEDS: Spironolactone 25 MG TABLET PO SCH (08:20)
[2022-07-22] MEDS: Magnesium Oxide 400 MG TABLET PO SCH (08:20)
[2022-07-22] MEDS: Lactobacillus 1 EACH CAP.SPRINK PO SCH (08:20)
[2022-07-22] MEDS: Insulin LISPRO 300 UNITS/3 ML VIAL SUBQ SCH ×4 (08:20→22:08)
[2022-07-22] MEDS: Metoprolol XL (24 HR) Succ 25 MG TAB.ER.24H PO SCH (08:21)
[2022-07-22] MEDS: Furosemide 40 MG TABLET PO SCH (08:21)
[2022-07-22] MEDS: Insulin DETEMIR 100 UNIT/ML X5UNITS SUBQ SCH ×2 (08:22→22:05)
[2022-07-22 08:41] LABS: INR 1.2; Prothrombin Time 13.2 Seconds (9.4-12.1)
[2022-07-22] MEDS: SODIUM CHLORIDE 0.9% IVPB SCH (16:01)
[2022-07-22] MEDS: MICAFUNGIN IVPB SCH (16:01)
[2022-07-22] MEDS ORDERED: *HR* Warfarin 3 MG TABLET PO ONE (18:00)
[2022-07-22] MEDS: Vancomycin 1,250 MG/262.5 ML IV.SOLN IVPB SCH (22:05)
[2022-07-23] MEDS: ceFAZolin 1,000 MG in 0.9 % Sodium Chloride Mini Bag 100 ML IVPB SCH ×5 (00:01→23:52)
[2022-07-23 06:00] LABS: INR 1.2; Prothrombin Time 13.9 Seconds (9.4-12.1)
[2022-07-23] MEDS: Magnesium Oxide 400 MG TABLET PO SCH (08:21)
[2022-07-23] MEDS: Spironolactone 25 MG TABLET PO SCH (08:21)
[2022-07-23] MEDS: Lactobacillus 1 EACH CAP.SPRINK PO SCH (08:21)
[2022-07-23] MEDS: Metoprolol XL (24 HR) Succ 25 MG TAB.ER.24H PO SCH (08:22)
[2022-07-23] MEDS: Furosemide 40 MG TABLET PO SCH (08:22)
[2022-07-23] MEDS: Insulin LISPRO 300 UNITS/3 ML VIAL SUBQ SCH ×4 (08:22→20:20)
[2022-07-23] MEDS: Insulin DETEMIR 100 UNIT/ML X5UNITS SUBQ SCH ×2 (08:24→20:21)
[2022-07-23] MEDS: SODIUM CHLORIDE 0.9% IVPB SCH (15:27)
[2022-07-23] MEDS: MICAFUNGIN IVPB SCH (15:27)
[2022-07-23] MEDS ORDERED: *HR* Warfarin 3 MG TABLET PO ONE (18:00)
[2022-07-23] MEDS: Vancomycin 1,250 MG/262.5 ML IV.SOLN IVPB SCH (20:13)
[2022-07-24] MEDS: ceFAZolin 1,000 MG in 0.9 % Sodium Chloride Mini Bag 100 ML IVPB SCH ×4 (05:46→23:53)
[2022-07-24] MEDS: Insulin LISPRO 300 UNITS/3 ML VIAL SUBQ SCH ×4 (09:05→20:36)
[2022-07-24] MEDS: Metoprolol XL (24 HR) Succ 25 MG TAB.ER.24H PO SCH (09:06)
[2022-07-24] MEDS: Furosemide 40 MG TABLET PO SCH (09:06)
[2022-07-24] MEDS: Magnesium Oxide 400 MG TABLET PO SCH (09:06)
[2022-07-24] MEDS: Insulin DETEMIR 100 UNIT/ML X5UNITS SUBQ SCH ×2 (09:06→20:36)
[2022-07-24] MEDS: Lactobacillus 1 EACH CAP.SPRINK PO SCH (09:07)
[2022-07-24] MEDS: Spironolactone 25 MG TABLET PO SCH (09:07)
[2022-07-24 09:50] LABS: INR 1.6
[2022-07-24 09:59] LABS: BUN/Creatinine Ratio 15 (6-26); Blood Urea Nitrogen 37 mg/dL (8-23)
[2022-07-24] MEDS: SODIUM CHLORIDE 0.9% IVPB SCH (15:06)
[2022-07-24] MEDS: MICAFUNGIN IVPB SCH (15:06)
[2022-07-24] MEDS ORDERED: *HR* Warfarin 3 MG TABLET PO ONE (18:00)
[2022-07-25] MEDS: Vancomycin 1,250 MG/262.5 ML IV.SOLN IVPB SCH (00:07)
[2022-07-25] MEDS: ceFAZolin 1,000 MG in 0.9 % Sodium Chloride Mini Bag 100 ML IVPB SCH ×4 (05:59→23:42)
[2022-07-25 06:42] LABS: INR 1.8; Prothrombin Time 20.3 Seconds (9.4-12.1)
[2022-07-25] MEDS: Insulin DETEMIR 100 UNIT/ML X5UNITS SUBQ SCH ×2 (08:35→20:25)
[2022-07-25] MEDS: Metoprolol XL (24 HR) Succ 25 MG TAB.ER.24H PO SCH (08:35)
[2022-07-25] MEDS: Spironolactone 25 MG TABLET PO SCH (08:35)
[2022-07-25] MEDS: Lactobacillus 1 EACH CAP.SPRINK PO SCH (08:35)
[2022-07-25] MEDS: Insulin LISPRO 300 UNITS/3 ML VIAL SUBQ SCH ×4 (08:35→20:25)
[2022-07-25] MEDS: Furosemide 40 MG TABLET PO SCH (08:35)
[2022-07-25] MEDS: Magnesium Oxide 400 MG TABLET PO SCH (08:35)
[2022-07-25] MEDS: SODIUM CHLORIDE 0.9% IVPB SCH (17:18)
[2022-07-25] MEDS: MICAFUNGIN IVPB SCH (17:18)
[2022-07-25] MEDS ORDERED: *HR* Warfarin 3 MG TABLET PO ONE (18:00)
[2022-07-26] MEDS: ceFAZolin 1,000 MG in 0.9 % Sodium Chloride Mini Bag 100 ML IVPB SCH ×3 (05:48→17:54)
[2022-07-26 07:10] LABS: INR 1.9; Prothrombin Time 21.1 Seconds (9.4-12.1)
[2022-07-26] MEDS: Lactobacillus 1 EACH CAP.SPRINK PO SCH (10:29)
[2022-07-26] MEDS: Spironolactone 25 MG TABLET PO SCH (10:29)
[2022-07-26] MEDS: Furosemide 40 MG TABLET PO SCH (10:29)
[2022-07-26] MEDS: Insulin DETEMIR 100 UNIT/ML X5UNITS SUBQ SCH ×2 (10:29→22:38)
[2022-07-26] MEDS: Magnesium Oxide 400 MG TABLET PO SCH (10:29)
[2022-07-26] MEDS: Insulin LISPRO 300 UNITS/3 ML VIAL SUBQ SCH ×4 (10:30→22:39)
[2022-07-26] MEDS: Metoprolol XL (24 HR) Succ 25 MG TAB.ER.24H PO SCH (10:30)
[2022-07-26] MEDS: MICAFUNGIN IVPB SCH (17:20)
[2022-07-26] MEDS: SODIUM CHLORIDE 0.9% IVPB SCH (17:20)
[2022-07-26] MEDS ORDERED: *HR* Warfarin 3 MG TABLET PO ONE (18:00)
[2022-07-26] MEDS ORDERED: *HR* Alteplase (Cathflo) 2 MG VIAL IVP ONE (23:18)
[2022-07-27] MEDS: ceFAZolin 1,000 MG in 0.9 % Sodium Chloride Mini Bag 100 ML IVPB SCH ×5 (00:51→23:47)
[2022-07-27 07:20] LABS: INR 2.1; Prothrombin Time 23.5 Seconds (9.4-12.1)
[2022-07-27] MEDS: Insulin DETEMIR 100 UNIT/ML X5UNITS SUBQ SCH ×2 (08:26→21:14)
[2022-07-27] MEDS: Lactobacillus 1 EACH CAP.SPRINK PO SCH (08:26)
[2022-07-27] MEDS: Magnesium Oxide 400 MG TABLET PO SCH (08:26)
[2022-07-27] MEDS: Furosemide 40 MG TABLET PO SCH (08:26)
[2022-07-27] MEDS: Spironolactone 25 MG TABLET PO SCH (08:27)
[2022-07-27] MEDS: Insulin LISPRO 300 UNITS/3 ML VIAL SUBQ SCH ×4 (08:27→21:15)
[2022-07-27] MEDS: Metoprolol XL (24 HR) Succ 25 MG TAB.ER.24H PO SCH (08:27)
[2022-07-27] MEDS: Ergocalciferol (VIT D2) 50,000 UNIT (1.25MG) CAP PO SCH (12:33)
[2022-07-27] MEDS: SODIUM CHLORIDE 0.9% IVPB SCH (15:32)
[2022-07-27] MEDS: MICAFUNGIN IVPB SCH (15:32)
[2022-07-27] MEDS ORDERED: *HR* Warfarin 3 MG TABLET PO ONE (18:00)
[2022-07-28] MEDS: ceFAZolin 1,000 MG in 0.9 % Sodium Chloride Mini Bag 100 ML IVPB SCH ×4 (06:23→23:29)
[2022-07-28 08:10] LABS: INR 2.3; Prothrombin Time 25.1 Seconds (9.4-12.1)
[2022-07-28] MEDS: Lactobacillus 1 EACH CAP.SPRINK PO SCH (08:25)
[2022-07-28] MEDS: Spironolactone 25 MG TABLET PO SCH (08:25)
[2022-07-28] MEDS: Magnesium Oxide 400 MG TABLET PO SCH (08:25)
[2022-07-28] MEDS: Metoprolol XL (24 HR) Succ 25 MG TAB.ER.24H PO SCH (08:25)
[2022-07-28] MEDS: Furosemide 40 MG TABLET PO SCH (08:25)
[2022-07-28] MEDS: Insulin LISPRO 300 UNITS/3 ML VIAL SUBQ SCH ×4 (08:26→21:12)
[2022-07-28] MEDS: Insulin DETEMIR 100 UNIT/ML X5UNITS SUBQ SCH ×2 (08:27→21:17)
[2022-07-28] MEDS: MICAFUNGIN IVPB SCH (15:06)
[2022-07-28] MEDS: SODIUM CHLORIDE 0.9% IVPB SCH (15:06)
[2022-07-28] MEDS ORDERED: *HR* Warfarin 3 MG TABLET PO ONE (18:00)
[2022-07-29] MEDS: ceFAZolin 1,000 MG in 0.9 % Sodium Chloride Mini Bag 100 ML IVPB SCH ×3 (05:07→17:13)
[2022-07-29 06:58] LABS: INR 2.4
[2022-07-29] MEDS: Insulin LISPRO 300 UNITS/3 ML VIAL SUBQ SCH ×4 (07:24→21:08)
[2022-07-29] MEDS: Furosemide 40 MG TABLET PO SCH (09:33)
[2022-07-29] MEDS: Lactobacillus 1 EACH CAP.SPRINK PO SCH (09:33)
[2022-07-29] MEDS: Insulin DETEMIR 100 UNIT/ML X5UNITS SUBQ SCH ×2 (09:34→21:03)
[2022-07-29] MEDS: Metoprolol XL (24 HR) Succ 25 MG TAB.ER.24H PO SCH (09:34)
[2022-07-29] MEDS: Magnesium Oxide 400 MG TABLET PO SCH (09:34)
[2022-07-29] MEDS: Spironolactone 25 MG TABLET PO SCH (09:34)
[2022-07-29] MEDS: SODIUM CHLORIDE 0.9% IVPB SCH (15:40)
[2022-07-29] MEDS: MICAFUNGIN IVPB SCH (15:40)
[2022-07-29] MEDS ORDERED: *HR* Warfarin 3 MG TABLET PO ONE (18:00)
[2022-07-30] MEDS: ceFAZolin 1,000 MG in 0.9 % Sodium Chloride Mini Bag 100 ML IVPB SCH ×5 (00:25→23:54)
[2022-07-30] MEDS: Insulin LISPRO 300 UNITS/3 ML VIAL SUBQ SCH ×4 (07:45→21:24)
[2022-07-30 08:42] LABS: Basophils # 0.1 K/mcL (0.0-0.2); Basophils % 1.6 %; Eosinophils # 0.1 K/mcL (0.0-0.6); Eosinophils % 3.6 %; Hematocrit 32.9 % (37.5-50.1); Hemoglobin 10.7 g/dL (12.9-16.9); Immature Granulocytes % 0.3 % (0-4); Lymphocytes # 0.8 K/mcL (0.6-4.6); Lymphocytes % 20.8 %; Mean Corpuscular HGB Conc 32.5 g/dL (31.6-35.5); Mean Corpuscular Hemoglobin 28.5 pg (28.0-33.3); Mean Corpuscular Volume 87.5 fL (83.0-100.0); Mean Platelet Volume 12.1 fL (9.4-12.4); Monocytes # 0.5 K/mcL (0.0-1.3); Monocytes % 13.8 %; Neutrophils # 2.3 K/mcL (1.6-8.9); Platelet Count 234 K/mcL (140-400); Red Blood Count 3.76 M/mcL (4.19-5.50); Red Cell Distribution Width 14.4 % (11.5-14.5); Segmented Neutrophils % 59.9 %; White Blood Count 3.9 K/mcL (4.3-11.1)
[2022-07-30 08:50] LABS: INR 2.4; Prothrombin Time 26.8 Seconds (9.4-12.1)
[2022-07-30 08:58] LABS: Albumin 3.4 g/dL (3.5-5.7); Albumin/Globulin Ratio 1.2 (1.1-2.2); Bilirubin,Total 0.3 mg/dL (0.3-1.0); Calcium 9.1 mg/dL (8.6-10.3); Globulin 2.8 g/dL (2.4-3.5); Potassium 4.9 mEq/L (3.5-5.1); Total Protein 6.2 g/dL (6.4-8.9)
[2022-07-30] MEDS: Insulin DETEMIR 100 UNIT/ML X5UNITS SUBQ SCH ×2 (09:02→21:24)
[2022-07-30] MEDS: Magnesium Oxide 400 MG TABLET PO SCH (09:03)
[2022-07-30] MEDS: Spironolactone 25 MG TABLET PO SCH (09:03)
[2022-07-30] MEDS: Metoprolol XL (24 HR) Succ 25 MG TAB.ER.24H PO SCH (09:03)
[2022-07-30] MEDS: Lactobacillus 1 EACH CAP.SPRINK PO SCH (09:03)
[2022-07-30] MEDS: Furosemide 40 MG TABLET PO SCH (09:03)
[2022-07-30] MEDS: MICAFUNGIN IVPB SCH (15:33)
[2022-07-30] MEDS: SODIUM CHLORIDE 0.9% IVPB SCH (15:33)
[2022-07-30] MEDS ORDERED: *HR* Warfarin 3 MG TABLET PO ONE (18:00)
[2022-07-31] MEDS: ceFAZolin 1,000 MG in 0.9 % Sodium Chloride Mini Bag 100 ML IVPB SCH ×5 (05:57→23:50)
[2022-07-31] MEDS: Insulin LISPRO 300 UNITS/3 ML VIAL SUBQ SCH ×4 (10:15→22:43)
[2022-07-31] MEDS: Furosemide 40 MG TABLET PO SCH (10:16)
[2022-07-31] MEDS: Spironolactone 25 MG TABLET PO SCH (10:16)
[2022-07-31] MEDS: Insulin DETEMIR 100 UNIT/ML X5UNITS SUBQ SCH ×2 (10:16→22:44)
[2022-07-31] MEDS: Lactobacillus 1 EACH CAP.SPRINK PO SCH (10:16)
[2022-07-31] MEDS: Metoprolol XL (24 HR) Succ 25 MG TAB.ER.24H PO SCH (10:16)
[2022-07-31] MEDS: Magnesium Oxide 400 MG TABLET PO SCH (10:16)
[2022-07-31] MEDS: SODIUM CHLORIDE 0.9% IVPB SCH (15:30)
[2022-07-31] MEDS: MICAFUNGIN IVPB SCH (15:30)
[2022-07-31 15:58] LABS: Prothrombin Time 22.6 Seconds (9.4-12.1)
[2022-07-31] MEDS ORDERED: *HR* Warfarin 3 MG TABLET PO ONE (18:00)
[2022-08-01] MEDS: ceFAZolin 1,000 MG in 0.9 % Sodium Chloride Mini Bag 100 ML IVPB SCH ×3 (05:58→19:30)
[2022-08-01 07:30] LABS: INR 2.2; Prothrombin Time 24.1 Seconds (9.4-12.1)
[2022-08-01] MEDS: Lactobacillus 1 EACH CAP.SPRINK PO SCH (08:12)
[2022-08-01] MEDS: Spironolactone 25 MG TABLET PO SCH (08:12)
[2022-08-01] MEDS: Insulin LISPRO 300 UNITS/3 ML VIAL SUBQ SCH ×4 (08:12→22:02)
[2022-08-01] MEDS: Metoprolol XL (24 HR) Succ 25 MG TAB.ER.24H PO SCH (08:12)
[2022-08-01] MEDS: Magnesium Oxide 400 MG TABLET PO SCH (08:12)
[2022-08-01] MEDS: Furosemide 40 MG TABLET PO SCH (08:12)
[2022-08-01] MEDS: Insulin DETEMIR 100 UNIT/ML X5UNITS SUBQ SCH ×2 (11:08→22:10)
[2022-08-01] MEDS: MICAFUNGIN IVPB SCH (16:09)
[2022-08-01] MEDS: SODIUM CHLORIDE 0.9% IVPB SCH (16:09)
[2022-08-01] MEDS ORDERED: *HR* Warfarin 3 MG TABLET PO ONE (18:00)
[2022-08-02] MEDS: ceFAZolin 1,000 MG in 0.9 % Sodium Chloride Mini Bag 100 ML IVPB SCH ×5 (00:07→23:41)
[2022-08-02 07:17] LABS: INR 2.8; Prothrombin Time 30.9 Seconds (9.4-12.1)
[2022-08-02] MEDS: Insulin LISPRO 300 UNITS/3 ML VIAL SUBQ SCH ×4 (10:08→20:50)
[2022-08-02] MEDS: Furosemide 40 MG TABLET PO SCH (10:09)
[2022-08-02] MEDS: Lactobacillus 1 EACH CAP.SPRINK PO SCH (10:09)
[2022-08-02] MEDS: Insulin DETEMIR 100 UNIT/ML X5UNITS SUBQ SCH ×2 (10:09→20:50)
[2022-08-02] MEDS: Spironolactone 25 MG TABLET PO SCH (10:09)
[2022-08-02] MEDS: Metoprolol XL (24 HR) Succ 25 MG TAB.ER.24H PO SCH (10:09)
[2022-08-02] MEDS: Magnesium Oxide 400 MG TABLET PO SCH (10:09)
[2022-08-02] MEDS: SODIUM CHLORIDE 0.9% IVPB SCH (15:08)
[2022-08-02] MEDS: MICAFUNGIN IVPB SCH (15:08)
[2022-08-02] MEDS ORDERED: *HR* Warfarin 2 MG TABLET PO ONE (18:00)
[2022-08-03] MEDS: ceFAZolin 1,000 MG in 0.9 % Sodium Chloride Mini Bag 100 ML IVPB SCH ×3 (05:36→17:24)
[2022-08-03 06:28] LABS: INR 2.4; Prothrombin Time 27.1 Seconds (9.4-12.1)
[2022-08-03] MEDS: Insulin LISPRO 300 UNITS/3 ML VIAL SUBQ SCH ×4 (09:04→20:16)
[2022-08-03] MEDS: Lactobacillus 1 EACH CAP.SPRINK PO SCH (09:05)
[2022-08-03] MEDS: Spironolactone 25 MG TABLET PO SCH (09:05)
[2022-08-03] MEDS: Metoprolol XL (24 HR) Succ 25 MG TAB.ER.24H PO SCH (09:05)
[2022-08-03] MEDS: Magnesium Oxide 400 MG TABLET PO SCH (09:05)
[2022-08-03] MEDS: Furosemide 40 MG TABLET PO SCH (09:05)
[2022-08-03] MEDS: Insulin DETEMIR 100 UNIT/ML X5UNITS SUBQ SCH ×2 (09:06→20:15)
[2022-08-03] MEDS: Ergocalciferol (VIT D2) 50,000 UNIT (1.25MG) CAP PO SCH (12:38)
[2022-08-03] MEDS: SODIUM CHLORIDE 0.9% IVPB SCH (16:16)
[2022-08-03] MEDS: MICAFUNGIN IVPB SCH (16:16)
[2022-08-03] MEDS ORDERED: SODIUM CHLORIDE 0.9% IVPB SCH (18:00)
[2022-08-03] MEDS ORDERED: *HR* Warfarin 2 MG TABLET PO ONE (18:00)
[2022-08-03] MEDS ORDERED: MICAFUNGIN IVPB SCH (18:00)
[2022-08-04] MEDS: ceFAZolin 1,000 MG in 0.9 % Sodium Chloride Mini Bag 100 ML IVPB SCH ×4 (00:36→20:03)
[2022-08-04 08:07] LABS: INR 1.9; Prothrombin Time 21.3 Seconds (9.4-12.1)
[2022-08-04] MEDS: Spironolactone 25 MG TABLET PO SCH (08:22)
[2022-08-04] MEDS: Insulin LISPRO 300 UNITS/3 ML VIAL SUBQ SCH ×4 (08:22→20:07)
[2022-08-04] MEDS: Furosemide 40 MG TABLET PO SCH (08:22)
[2022-08-04] MEDS: Magnesium Oxide 400 MG TABLET PO SCH (08:22)
[2022-08-04] MEDS: Lactobacillus 1 EACH CAP.SPRINK PO SCH (08:23)
[2022-08-04] MEDS: Metoprolol XL (24 HR) Succ 25 MG TAB.ER.24H PO SCH (08:23)
[2022-08-04] MEDS: Insulin DETEMIR 100 UNIT/ML X5UNITS SUBQ SCH ×2 (09:15→20:07)
[2022-08-04] MEDS: MICAFUNGIN IVPB SCH (15:48)
[2022-08-04] MEDS: SODIUM CHLORIDE 0.9% IVPB SCH (15:48)
[2022-08-04] MEDS ORDERED: *HR* Warfarin 5 MG TABLET PO ONE (18:00)
[2022-08-04] MEDS ORDERED: *HR* Warfarin 3 MG TABLET PO ONE (18:00)
[2022-08-05] MEDS: ceFAZolin 1,000 MG in 0.9 % Sodium Chloride Mini Bag 100 ML IVPB SCH ×5 (01:45→22:46)
[2022-08-05] MEDS: Magnesium Oxide 400 MG TABLET PO SCH (07:47)
[2022-08-05] MEDS: Furosemide 40 MG TABLET PO SCH (07:47)
[2022-08-05] MEDS: Lactobacillus 1 EACH CAP.SPRINK PO SCH (07:47)
[2022-08-05] MEDS: Spironolactone 25 MG TABLET PO SCH (07:47)
[2022-08-05] MEDS: Metoprolol XL (24 HR) Succ 25 MG TAB.ER.24H PO SCH (07:47)
[2022-08-05] MEDS: Insulin LISPRO 300 UNITS/3 ML VIAL SUBQ SCH ×4 (07:47→20:11)
[2022-08-05 08:39] LABS: INR 1.7; Prothrombin Time 18.4 Seconds (9.4-12.1)
[2022-08-05] MEDS: Insulin DETEMIR 100 UNIT/ML X5UNITS SUBQ SCH ×2 (09:03→20:11)
[2022-08-05] MEDS: SODIUM CHLORIDE 0.9% IVPB SCH (16:12)
[2022-08-05] MEDS: MICAFUNGIN IVPB SCH (16:12)
[2022-08-05] MEDS ORDERED: *HR* Warfarin 3 MG TABLET PO ONE (18:00)
[2022-08-06] MEDS: ceFAZolin 1,000 MG in 0.9 % Sodium Chloride Mini Bag 100 ML IVPB SCH ×3 (04:47→17:53)
[2022-08-06] MEDS: Spironolactone 25 MG TABLET PO SCH (08:47)
[2022-08-06] MEDS: Furosemide 40 MG TABLET PO SCH (08:47)
[2022-08-06] MEDS: Lactobacillus 1 EACH CAP.SPRINK PO SCH (08:47)
[2022-08-06] MEDS: Magnesium Oxide 400 MG TABLET PO SCH (08:47)
[2022-08-06] MEDS: Metoprolol XL (24 HR) Succ 25 MG TAB.ER.24H PO SCH (08:47)
[2022-08-06] MEDS: Insulin LISPRO 300 UNITS/3 ML VIAL SUBQ SCH ×4 (08:49→20:40)
[2022-08-06] MEDS: Insulin DETEMIR 100 UNIT/ML X5UNITS SUBQ SCH ×2 (08:57→20:32)
[2022-08-06 10:39] LABS: Basophils # 0.1 K/mcL (0.0-0.2); Basophils % 1.1 %; Eosinophils # 0.1 K/mcL (0.0-0.6); Eosinophils % 2.6 %; Hematocrit 32.3 % (37.5-50.1); Hemoglobin 10.6 g/dL (12.9-16.9); Immature Granulocytes % 0.2 % (0-4); Lymphocytes # 0.6 K/mcL (0.6-4.6); Lymphocytes % 13.7 %; Mean Corpuscular HGB Conc 32.8 g/dL (31.6-35.5); Mean Corpuscular Hemoglobin 28.6 pg (28.0-33.3); Mean Corpuscular Volume 87.1 fL (83.0-100.0); Monocytes # 0.5 K/mcL (0.0-1.3); Neutrophils # 3.4 K/mcL (1.6-8.9); Platelet Count 214 K/mcL (140-400); Red Blood Count 3.71 M/mcL (4.19-5.50); Red Cell Distribution Width 14.2 % (11.5-14.5); Segmented Neutrophils % 72.4 %; White Blood Count 4.7 K/mcL (4.3-11.1)
[2022-08-06 10:46] LABS: INR 1.7; Prothrombin Time 19.2 Seconds (9.4-12.1)
[2022-08-06 10:53] LABS: Calcium 8.6 mg/dL (8.6-10.3); Magnesium 1.5 mg/dL (1.6-2.6); Potassium 4.7 mEq/L (3.5-5.1)
[2022-08-06] MEDS: MICAFUNGIN IVPB SCH (14:47)
[2022-08-06] MEDS: SODIUM CHLORIDE 0.9% IVPB SCH (14:47)
[2022-08-07] MEDS ORDERED: *HR* Warfarin 3 MG TABLET PO ONE ×2 (01:30→18:00)
[2022-08-07] MEDS: ceFAZolin 1,000 MG in 0.9 % Sodium Chloride Mini Bag 100 ML IVPB SCH ×4 (05:47→18:59)
[2022-08-07 07:37] LABS: INR 1.9; Prothrombin Time 21.1 Seconds (9.4-12.1)
[2022-08-07] MEDS: Metoprolol XL (24 HR) Succ 25 MG TAB.ER.24H PO SCH (09:31)
[2022-08-07] MEDS: Lactobacillus 1 EACH CAP.SPRINK PO SCH (09:32)
[2022-08-07] MEDS: Insulin LISPRO 300 UNITS/3 ML VIAL SUBQ SCH ×4 (09:32→22:44)
[2022-08-07] MEDS: Spironolactone 25 MG TABLET PO SCH (09:32)
[2022-08-07] MEDS: Furosemide 40 MG TABLET PO SCH (09:32)
[2022-08-07] MEDS: Magnesium Oxide 400 MG TABLET PO SCH (09:32)
[2022-08-07] MEDS: Insulin DETEMIR 100 UNIT/ML X5UNITS SUBQ SCH ×2 (09:41→22:20)
[2022-08-07] MEDS: MICAFUNGIN IVPB SCH (15:16)
[2022-08-07] MEDS: SODIUM CHLORIDE 0.9% IVPB SCH (15:16)
[2022-08-08] MEDS: ceFAZolin 1,000 MG in 0.9 % Sodium Chloride Mini Bag 100 ML IVPB SCH ×4 (00:17→17:42)
[2022-08-08 08:09] LABS: INR 2.6; Prothrombin Time 29.1 Seconds (9.4-12.1)
[2022-08-08] MEDS: Lactobacillus 1 EACH CAP.SPRINK PO SCH (08:25)
[2022-08-08] MEDS: Magnesium Oxide 400 MG TABLET PO SCH (08:25)
[2022-08-08] MEDS: Metoprolol XL (24 HR) Succ 25 MG TAB.ER.24H PO SCH (08:26)
[2022-08-08] MEDS: Furosemide 40 MG TABLET PO SCH (08:26)
[2022-08-08] MEDS: Insulin LISPRO 300 UNITS/3 ML VIAL SUBQ SCH ×4 (08:26→19:48)
[2022-08-08] MEDS: Spironolactone 25 MG TABLET PO SCH (08:26)
[2022-08-08] MEDS: Insulin DETEMIR 100 UNIT/ML X5UNITS SUBQ SCH ×2 (09:18→19:47)
[2022-08-08] MEDS: SODIUM CHLORIDE 0.9% IVPB SCH (17:43)
[2022-08-08] MEDS: MICAFUNGIN IVPB SCH (17:43)
[2022-08-08] MEDS ORDERED: *HR* Warfarin 3 MG TABLET PO ONE (18:00)
[2022-08-09] MEDS: ceFAZolin 1,000 MG in 0.9 % Sodium Chloride Mini Bag 100 ML IVPB SCH ×4 (00:18→18:44)
[2022-08-09 06:28] LABS: INR 2.8; Prothrombin Time 30.5 Seconds (9.4-12.1)
[2022-08-09] MEDS: Metoprolol XL (24 HR) Succ 25 MG TAB.ER.24H PO SCH (08:31)
[2022-08-09] MEDS: Magnesium Oxide 400 MG TABLET PO SCH (08:31)
[2022-08-09] MEDS: Lactobacillus 1 EACH CAP.SPRINK PO SCH (08:32)
[2022-08-09] MEDS: Spironolactone 25 MG TABLET PO SCH (08:32)
[2022-08-09] MEDS: Insulin LISPRO 300 UNITS/3 ML VIAL SUBQ SCH ×4 (08:32→20:29)
[2022-08-09] MEDS: Furosemide 40 MG TABLET PO SCH (08:32)
[2022-08-09] MEDS: Insulin DETEMIR 100 UNIT/ML X5UNITS SUBQ SCH ×2 (09:04→20:30)
[2022-08-09] MEDS: MICAFUNGIN IVPB SCH (16:37)
[2022-08-09] MEDS: SODIUM CHLORIDE 0.9% IVPB SCH (16:37)
[2022-08-09] MEDS ORDERED: *HR* Warfarin 2 MG TABLET PO ONE (18:00)
[2022-08-10] MEDS: ceFAZolin 1,000 MG in 0.9 % Sodium Chloride Mini Bag 100 ML IVPB SCH ×2 (00:45→06:12)
[2022-08-10 07:03] VITALS: BP 109/74; PULSE 68; RESP 16; TEMP 97.4; O2SAT 96
[2022-08-10 08:00] LABS: INR 2.4; Prothrombin Time 26.7 Seconds (9.4-12.1)
[2022-08-10] MEDS: Magnesium Oxide 400 MG TABLET PO SCH (08:28)
[2022-08-10] MEDS: Spironolactone 25 MG TABLET PO SCH (08:28)
[2022-08-10] MEDS: Insulin LISPRO 300 UNITS/3 ML VIAL SUBQ SCH ×2 (08:28→12:21)
[2022-08-10] MEDS: Lactobacillus 1 EACH CAP.SPRINK PO SCH (08:29)
[2022-08-10] MEDS: Furosemide 40 MG TABLET PO SCH (08:29)
[2022-08-10] MEDS: Metoprolol XL (24 HR) Succ 25 MG TAB.ER.24H PO SCH (08:29)
[2022-08-10] MEDS: Insulin DETEMIR 100 UNIT/ML X5UNITS SUBQ SCH (09:47)
[2022-08-10] MEDS ORDERED: SODIUM CHLORIDE 0.9% IVPB SCH (10:30)
[2022-08-10] MEDS ORDERED: MICAFUNGIN IVPB SCH (10:30)
== END 2022-08-10 13:00 | disposition home or self-care (01) | DRG 607 ==
LOC: INPPIK 19:39 → SUATTDRO 19:39
PROVIDERS: ADMIT Family Medicine; ATTEND Nurse Practitioner